=== PATIENT | female | born 1940 | race Hispanic/Latino ===

== ENCOUNTER 2020-06-08 09:13 | Observation (INO) | payer MEDICARE ==
[2020-06-03 15:35] LABS: BASOPHILS % 0.5 % (0.0-1.0); EOSINOPHILS # (AUTO) 0.3 (0.0-0.4); EOSINOPHILS % 4.4 % (0.0-6.0); HEMATOCRIT 40.2 % (34.2-44.1); HEMOGLOBIN 13.3 g/dL (12.0-16.0); LYMPHOCYTES # (AUTO) 1.2 (1.0-3.2); LYMPHOCYTES % 19.1 % (18.0-39.1); MEAN CORPUSCULAR HEMOGLOBIN 30.1 pg (28-32); MEAN CORPUSCULAR HGB CONC 33.1 g/dL (31-35); MONOCYTES # (AUTO) 0.4 (0.2-0.8); MONOCYTES % 6.3 % (4.4-11.3); NEUTROPHILS # (AUTO) 4.4 (2.1-6.9); NEUTROPHILS % 69.4 % (38.7-80.0); PLATELET COUNT 223 x10e3/uL (140-360); RED BLOOD COUNT 4.42 x10e6/uL (3.6-5.1); RED CELL DISTRIBUTION WIDTH 13.3 % (11.7-14.4)
--- NOTE | 2020-06-03 16:32 | Diagnostic Imaging Report ---
Chest, 2 views, 06/02/2020. History: Preop, right knee surgery. Comparison: None available. Findings: The cardiomediastinal silhouette and pulmonary vasculature are within normal limits. Descending thoracic aorta is tortuous. The lungs are clear without evidence of consolidation or pleural effusion. 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 Deformity of the left shoulder is consistent with old trauma. There are no acute osseous or soft tissue abnormalities. Impression: No acute cardiopulmonary abnormality. Signed by: Tree Brewer on 06/03/2020 4:29 PM
[~2020-06-08] VITALS: Ht 142.2 cm; Wt 64.9 kg
[~2020-06-08 09:13] MED LIST: AMITIZA24 MCG PO; AMLODIPINE BESY10 MG PO; CELEBREX100 MG PO; CLOPIDOGREL75 MG PO; CRESTOR10 MG PO; PROTONIX20 MG PO; ROPIVACAINE 246.25 MG, EPINEPHRINE HCL 1:1000 1ML 0.5 MG, CLONIDINE HCL 0.08 MG, KETORO... INJ ONE
[2020-06-08] MEDS ORDERED: CELECOXIB 200 MG CAP ONE (10:31)
[2020-06-08] MEDS ORDERED: CEFAZOLIN SOD 1 GM/NS 50ML 100 ML IV ONE (10:32)
[2020-06-08] MEDS ORDERED: DEXAMETHASONE SOD PHOS 10 MG/1 ML VIAL ONE (10:32)
[2020-06-08] MEDS ORDERED: GABAPENTIN 300 MG CAP ONE (10:32)
[2020-06-08] MEDS ORDERED: SODIUM CHLORIDE 0.9% 500ML 500 ML ONE (11:27)
[2020-06-08] MEDS ORDERED: VANCOMYCIN HCL 1,000 MG ONE (11:27)
[2020-06-08] MEDS ORDERED: TRANEXAMIC ACID 1,000 MG/10 ML ML ONE (11:27)
[2020-06-08] MEDS ORDERED: HYDROCODONE/APAP 5MG-325MG TAB PO PRN (12:45)
[2020-06-08] MEDS ORDERED: ONDANSETRON HCL INJ 2MG/ML 2ML 2 MG/ML VIAL IV PRN (12:45)
[2020-06-08] MEDS ORDERED: HYDROCODONE/APAP 7.5MG-325MG 1 EA TAB PO PRN (12:45)
[2020-06-08] MEDS ORDERED: KETOROLAC TROMETHAMINE 30 MG/ML VIAL IV PRN (12:45)
[2020-06-08] MEDS ORDERED: DOCUSATE SODIUM 100 MG CAP PO PRN (12:45)
[2020-06-08] MEDS ORDERED: DIPHENHYDRAMINE HCL INJ 50 MG/ML VIAL IV PRN (12:45)
[2020-06-08] MEDS ORDERED: ACETAMINOPHEN 650 MG SUPP PR PRN (12:45)
--- NOTE | 2020-06-08 13:53 | Diagnostic Imaging Report ---
X-ray right knee 3 views History: Postoperative Findings: See impression Impression: Status post right knee tricompartmental arthroplasty with postoperative colton, soft tissue air and swelling. The orthopedic hardware is in position and in near anatomic alignment. Bones are osteopenic. Arterial calcification. Signed by: Roldan Almaguer MD on 06/08/2020 1:50 PM
--- NOTE | 2020-06-08 14:16 | Operative Report ---
DATE OF PROCEDURE: 06/08/2020 SURGEON: Salbador Rodriguez MD ABLE BODIED SEAMAN: Tahir Dangelo PA-C PREOPERATIVE DIAGNOSIS: Osteoarthritis, right knee. POSTOPERATIVE DIAGNOSIS: Osteoarthritis, right knee. PROCEDURE: Right total knee arthroplasty. INDICATIONS: The patient is a 80-year-old lady who has end-stage arthritis of her right knee. She has failed conservative management and would like to proceed with a right total knee replacement. The risks and benefits of the procedure have been discussed in detail with the patient and her family. They state they understand and wished to proceed. PROCEDURE IN DETAIL: The patient was brought to the operating room and placed under general anesthetic. She received prophylactic antibiotics, a regional block and tranexamic acid in the holding area. Her right lower extremity was prepped and draped in a sterile manner. A preoperative time-out was performed. The extremity was exsanguinated and a proximal tourniquet was inflated to 300 mmHg. An anterior incision with a medial parapatellar arthrotomy was performed. Clear synovial fluid was removed from the joint. Soft tissue releases were performed to bring the knee up into flexion with the patella everted. Meniscal remnants, marginal osteophytes in the cruciate ligaments were removed. A Harris and NephJW Player knee system were used. Initial attention was directed towards the proximal tibia. Extramedullary cutting guide was used to resect the tibia. The cut was referenced off the lateral compartment. Complete loss of articular cartilage was noted in the medial compartment. The tibial base plate was a size 4. The central fin punch was impacted and attention was directed towards the distal femur. An intramedullary cutting guide was used to resect the distal femur in 6 degrees of valgus and rotation referencing off a combination of landmarks including Whitesides line, the epicondylar axis, and the posterior condyles. The femoral component was a size 5. The anterior and posterior cuts were made. Trial reductions were performed. A 9 mm ultracongruent tibial insert provided appropriate soft tissue balancing in full extension and 90 degrees of flexion. The patella was resurfaced with a 29 mm x 9 mm patellar button. The thickness was checked before and after resurfacing and was right around 20 mm. Patellar tracking was noted to be concentric. The trial implants were then all removed. The knee was thoroughly irrigated with a shower tip pulsatile lavage. A 100 mL premixed pericapsular DARYL injection was placed into the surrounding soft tissue. The components were cemented into place using a single mix of high viscosity Biomet cement preloaded with antibiotics. Care was taken to remove all extravasated cement. The wound was further irrigated while the cement cured. The arthrotomy was then closed with interrupted #1 Ethibond. The knee was put through flexion and extension to ensure a secure closure. The skin was closed with subcuticular Vicryl and colton. A sterile Aquacel bandage was applied. The patient was extubated and transported to the recovery room in stable condition. Blood loss was minimal. All needle and sponge counts were correct. Salbador Rodriguez MD DR/FLOR /[id number]
--- NOTE | 2020-06-08 14:52 | NUR ---
Received patient from PACU. Oriented patient to room and call light. Daughter at bedside to translate. Right knee dressing c/d/i. Pillow under right heel. Foot pumps applied. Right hand 20 gauge IV intact/patent. Respirations even and unlabored. Ice pack to right knee. Call light in reach will continue to monitor patient.
[2020-06-08 15:39] VITALS: BP 122/61
[2020-06-08 15:47] VITALS: BP 122/61
[2020-06-08 15:48] VITALS: BP 122/61
[2020-06-08] MEDS: SODIUM CHLORIDE 0.9% 1000ML 1,000 ML IV SCH ×2 (15:53→22:45)
--- NOTE | 2020-06-08 15:56 | NUR ---
DR LARKIN OFFICE PREARRANGED FOLLOWING DISCHARGE PLAN OF:HOME [address] [facility], [place] [address] HOME HEALTH WITH [facility] CONFIRMED WITH [facility] [phone] DME 3 IN ONE COMMODE, CPM AND ROLLING WALKER WITH WHEELS. PROVIDED BY Pets are family too [phone] PRAVIN SIGNED AND ON CHART COPY LEFT WITH PATIENT GAVE CARD FOR QUESTIONS AND OR CONCERNS.
[2020-06-08] MEDS ORDERED: ACETAMINOPHEN 1000 MG/100 ML IV PRN (16:00)
[2020-06-08] MEDS: CELECOXIB 100 MG CAP PO SCH (16:25)
[2020-06-08] MEDS: ASPIRIN 325 MG TAB PO SCH (16:25)
[2020-06-08] MEDS ORDERED: LIDOCAINE 2%/ EPINEPHRINE 20ML MDV ONE (16:27)
[2020-06-08] MEDS ORDERED: ROPIVACAINE 0.5% 5 MG/ML 30 ML SDV ONE (16:27)
[2020-06-08] MEDS ORDERED: FENTANYL CITRATE/PF 100MCG/2 ML INJ ONE (16:30)
[2020-06-08] MEDS ORDERED: MIDAZOLAM HCL 2 MG/2 ML VIAL ONE (16:30)
[2020-06-08] MEDS ORDERED: LIDOCAINE HCL 2% LOCAL INJ 5 ML SDV VIAL INJ ONE (16:40)
[2020-06-08] MEDS ORDERED: SEVOFLURANE INHAL SOLN 250 ML PEN BTL ONE (16:40)
[2020-06-08] MEDS ORDERED: KETOROLAC TROMETHAMINE 30 MG/ML VIAL ONE (16:40)
[2020-06-08] MEDS ORDERED: PROPOFOL IV EMULSION 10 MG/ML 20 ML VIAL ONE (16:40)
[2020-06-08] MEDS ORDERED: ONDANSETRON HCL INJ 2MG/ML 2ML 2 MG/ML VIAL ONE (16:40)
--- NOTE | 2020-06-08 18:21 | NUR ---
Patient placed onto CPM at 55 degrees. Patient tolerating well.
--- NOTE | 2020-06-08 19:00 | NUR ---
RECEIVED PATIENT IN BEDSIDE SHIFT REPORT. PATIENT ON CPM AT 55 DEGREES, TOLERATING WELL. PATIENT SLEEPY, BUT AROUSABLE. NO PAIN NOTED. NO S&S OF DISTRESS NOTED. BED LOCKED IN LOWEST POSITION, SIDE RAILS UPX2, CALL LIGHT IN REACH.
[2020-06-08 20:13] VITALS: BP 119/59
[2020-06-08 20:16] VITALS: BP 119/59
[2020-06-08] MEDS ORDERED: ZOLPIDEM TARTRATE 5 MG TAB PO PRN (21:00)
[2020-06-08] MEDS: CEFAZOLIN SOD 1 GM/NS 50ML 50 ML IV SCH (21:30)
--- NOTE | 2020-06-09 | NUR ---
PATIENT AMBULATED TO TOILET WITH WALKER AND STAFF ASSISTANCE. STEADY GAIT NOTED. NO BUCKLING NOTED.
[2020-06-09 00:09] VITALS: BP 117/64
[2020-06-09 04:32] VITALS: BP 101/58
[2020-06-09 05:10] LABS: HEMATOCRIT 35.9 % (34.2-44.1); HEMOGLOBIN 12.1 g/dL (12.0-16.0)
--- NOTE | 2020-06-09 05:20 | NUR ---
PLACED PATIENT ON CPM AT THIS TIME AT 60 DEGREES. PATIENT TOLERATING WELL.
[2020-06-09] MEDS: CEFAZOLIN SOD 1 GM/NS 50ML 50 ML IV SCH (05:29)
--- NOTE | 2020-06-09 06:40 | Consultation ---
DATE OF CONSULTATION: 06/09/2020 REASON FOR CONSULTATION: Postop medical management. HISTORY OF PRESENT ILLNESS: The patient is a 80-year-old lady, status post right knee arthroplasty for end-stage osteoarthritis, who actually has minimal pain. REVIEW OF SYSTEMS: Denies any fever, chills, nausea, vomiting, headache, shortness of breath, dizziness. PAST MEDICAL HISTORY: Significant for gastroesophageal reflux disease, hypertension, hyperlipidemia. MEDICATIONS: See MAR. ALLERGIES: NONE. SOCIAL HISTORY: Nonsmoker, nondrinker. . Retired. FAMILY HISTORY: Noncontributory. PHYSICAL EXAMINATION: VITAL SIGNS: Temperature 98.6, pulse 64, blood pressure 101/58, sats 98% on room air. GENERAL: No apparent distress, lying in bed. NECK: Supple. CARDIOVASCULAR: Regular rate and rhythm. LUNGS: Clear to auscultation bilaterally. ABDOMEN: Good bowel sounds. Soft, nontender. EXTREMITIES: No clubbing or cyanosis. There is no seepage on her right knee bandage. NEUROLOGIC: Nonfocal. ASSESSMENT/PLAN: 1. Right knee pain. We will continue physical therapy and pain control. 2. Reflux disease. Continue with her medication. 3. Hypertension. We will continue with her home medication. 4. Hyperlipidemia. We will restart her cholesterol medicine. 5. Anemia. We will check a CBC. Please see hospital chart for details. MD GARY Ryan/FLOR /[id number]
--- NOTE | 2020-06-09 07:00 | NUR ---
RECEIVED PATIENT RESTING IN BED NO S/S OF DISTRESS. CPM IN PLACE. BED LOW, WHEELS LOCKED, SIDE RAILS X2. CALL LIGHT IN REACH WILL CONTINUE TO MONITOR PATIENT.
[2020-06-09] MEDS ORDERED: PANTOPRAZOLE SOD 40 MG TABEC PO SCH (07:30)
[2020-06-09 08:08] VITALS: BP 134/58
[2020-06-09 08:10] VITALS: BP 134/58
[2020-06-09] MEDS: SODIUM CHLORIDE 0.9% 1000ML 1,000 ML IV SCH (08:45)
[2020-06-09] MEDS ORDERED: AMLODIPINE BESYLATE 10 MG TAB PO SCH (09:00)
[2020-06-09] MEDS ORDERED: SIMVASTATIN 40 MG TAB PO SCH (09:00)
[2020-06-09] MEDS: ASPIRIN 325 MG TAB PO SCH (09:17)
[2020-06-09] MEDS: CELECOXIB 100 MG CAP PO SCH (09:17)
--- NOTE | 2020-06-09 10:50 | NUR ---
Removed patients IV. Catheter tip intact and pressure dressing applied.
--- NOTE | 2020-06-09 11:30 | NUR ---
Patient discharged from facility. Patient gathered all personal belongings, discharge instructions, and follow up information. Patient left unit in wheelchair and went home via private auto.
[2020-06-09] MEDS ORDERED: SIMVASTATIN 20 MG TAB PO SCH (21:00)
--- OUTSIDE RECORDS SUMMARY | 2020-06-10 19:03 | XMS REPORT | Continuity of Care Document ---
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 [facility] HEMATOLOGY RBC 4.30 4.20 - 5.40 01/19/[address] [facility] HEMATOLOGY Hgb 13.6 12.0 - 16.0 01/19/[address] [facility] HEMATOLOGY Hct 40.1 36.0 - 48.0 01/19/[address] [facility] HEMATOLOGY MCV 93.2 80.0 - 98.0 01/19/[address] [facility] HEMATOLOGY WBC 4.5 3.7 - 10.4 01/19/[address] [facility] HEMATOLOGY Lymphocytes 10.0 20.0 - 40.0 01/19/[address] [facility] HEMATOLOGY Monocytes 1.6 2.0 - 12.0 01/19/[address] [facility] HEMATOLOGY Eosinophils 0.2 0.0 - 4.0 01/19/[address] [facility] HEMATOLOGY Basophils 0.2 0.0 - 1.0 01/19/[address] [facility] HEMATOLOGY Neutrophils # 4.0 1.5 - 8.1 01/19/[address] [facility] HEMATOLOGY Lymphocytes # 0.5 1.0 - 5.5 01/19/[address] [facility] HEMATOLOGY Segs 88.0 45.0 - 75.0 01/19/[address] [facility] HEMATOLOGY Monocytes # 0.1 0.0 - 0.8 01/19/[address] [facility] URINE AND STOOL UA WBC 0-2 /HPF None Seen /HPF 01/19/2019 [facility] URINE AND STOOL UA RBC None Seen (01/19/19 9:53 AM) 0 - 2 01/19/2019 [facility] URINE AND STOOL UA Bacteria None Seen (01/19/19 9:53 AM) None Seen 01/19/2019 [facility] URINE AND STOOL UA Mucus None Seen (01/19/19 9:53 AM) None Seen 01/19/2019 [facility] URINE AND STOOL UA Leuk Est Trace *ABN* (01/19/19 9:53 AM) Negative 01/19/2019 [facility] URINE AND STOOL UA Sq Epi Few /LPF Few /LPF 01/19/2019 [facility] URINE AND STOOL UA Blood Negative (01/19/19 9:53 AM) Negative 01/19/2019 [facility] URINE AND STOOL UA Bili Negative *NA* (01/19/19 9:53 AM) Negative 01/19/2019 [facility] URINE AND STOOL UA Protein Negative (01/19/19 9:53 AM) Negative 01/19/2019 [facility] URINE AND STOOL UA Ketones Negative *NA* (01/19/19 9:53 AM) Negative 01/19/2019 [facility] URINE AND STOOL UA Glucose Negative (01/19/19 9:53 AM) Negative 01/19/2019 [facility] URINE AND STOOL UA Spec Grav <=1.005 *NA* (01/19/19 9:53 AM) <=1.030 01/19/2019 [facility] URINE AND STOOL UA pH 7.0 5.0 - 8.0 01/19/2019 [facility] URINE AND STOOL UA Urobilinogen 0.2 0.1 - 1.0 01/19/2019 [facility] URINE AND STOOL UA Nitrite Negative (01/19/19 9:53 AM) Negative 01/19/2019 [facility] URINE AND STOOL UA Color Yellow *NA* (01/19/19 9:53 AM) Yellow 01/19/2019 [facility] URINE AND STOOL UA Turbidity Clear (01/19/19 9:53 AM) Clear 01/19/2019 [facility] CARDIAC ENZYMES Troponin-I <0.02 0.00 - 0.40 01/19/2019 [facility] CHEM PANEL Globulin 3.5 2.7 - 4.2 01/19/2019 [facility] CHEM PANEL B/C Ratio 43 6 - 25 01/19/2019 [facility] CHEM PANEL A/G Ratio 0.9 0.7 - 1.6 01/19/2019 [facility] CHEM PANEL AGAP 10.9 10.0 - 20.0 01/19/2019 [facility] CHEM PANEL eGFR 64 01/19/2019 Result Comment: The eGFR is calculated using the CKD-EPI formula. In most young, healthy individuals the eGFR will be >90 mL/min/1.73m2. The eGFR declines with age. An eGFR of 60-89 may be normal in some populations, particularly the elderly, for whom the CKD-EPI formula has not been extensively validated. Use of the eGFR is not recommended in the following populations:

Individuals with unstable creatinine concentrations, including patients and those with serious co-morbid conditions.

Patients with extremes in muscle mass or diet.

The data above are obtained from the National Kidney Disease Education Program (NKDEP) which additionally recommends that when the eGFR is used in patients with extremes of body mass index for purposes of drug dosing, the eGFR should be multiplied by the estimated BMI. [facility] CHEM PANEL Albumin Lvl 3.3 3.5 - 5.0 01/19/2019 [facility] CHEM PANEL Total Protein 6.8 6.4 - 8.4 01/19/2019 [facility] CHEM PANEL ALT 14 0 - 65 01/19/2019 [facility] CHEM PANEL AST 16 0 - 37 01/19/2019 [facility] CHEM PANEL Bili Total 0.5 0.2 - 1.3 01/19/2019 [facility] CHEM PANEL Alk Phos 94 39 - 136 01/19/2019 [facility] CHEM PANEL Potassium Lvl 3.9 3.5 - 5.1 01/19/2019 [facility] CHEM PANEL Calcium Lvl 8.2 8.5 - 10.5 01/19/2019 [facility] CHEM PANEL CO2 28 24 - 32 01/19/2019 [facility] CHEM PANEL Chloride Lvl 105 95 - 109 01/19/2019 [facility] CHEM PANEL BUN 37 7 - 22 01/19/2019 [facility] CHEM PANEL Glucose Lvl 98 70 - 99 01/19/2019 [facility] CHEM PANEL Sodium Lvl 140 135 - 145 01/19/2019 [facility] CHEM PANEL Creatinine Lvl 0.87 0.50 - 1.40 01/19/2019 [facility] HEMATOLOGY Segs 73.3 45.0 - 75.0 01/19/2019 [facility] HEMATOLOGY Eosinophils 3.4 0.0 - 4.0 01/19/2019 [facility] HEMATOLOGY Monocytes 10.4 2.0 - 12.0 01/19/2019 [facility] HEMATOLOGY Lymphocytes 12.6 20.0 - 40.0 01/19/2019 [facility] HEMATOLOGY Lymphocytes # 0.7 1.0 - 5.5 01/19/2019 [facility] HEMATOLOGY Neutrophils # 3.8 1.5 - 8.1 01/19/2019 [facility] HEMATOLOGY Basophils 0.3 0.0 - 1.0 01/19/2019 [facility] HEMATOLOGY Eosinophils # 0.2 0.0 - 0.5 01/19/2019 [facility] HEMATOLOGY Monocytes # 0.5 0.0 - 0.8 01/19/2019 [facility] HEMATOLOGY INR 0.97 0.85 - 1.17 01/19/2019 [facility] HEMATOLOGY PTT 33.2 22.9 - 35.8 01/19/2019 [facility] HEMATOLOGY PT 12.7 12.0 - 14.7 01/19/2019 [facility] HEMATOLOGY Platelet 186 133 - 450 01/19/2019 [facility] HEMATOLOGY MPV 8.1 7.4 - 10.4 01/19/2019 [facility] HEMATOLOGY WBC 5.2 3.7 - 10.4 01/19/2019 [facility] HEMATOLOGY RBC 4.21 4.20 - 5.40 01/19/2019 [facility] HEMATOLOGY Hgb 13.1 12.0 - 16.0 01/19/2019 [facility] HEMATOLOGY MCH 31.2 27.0 - 31.0 01/19/2019 [facility] HEMATOLOGY MCHC 33.5 32.0 - 36.0 01/19/2019 [facility] HEMATOLOGY MCV 92.9 80.0 - 98.0 01/19/2019 [facility] HEMATOLOGY RDW 13.9 11.5 - 14.5 01/19/2019 [facility] HEMATOLOGY Hct 39.1 36.0 - 48.0 01/19/2019 [facility] LIPIDS LDL (Calculated) 57 <=99 mg/dL 07/27/2018 [facility] LIPIDS VLDL 22 07/27/2018 [facility] LIPIDS Trig 109 <=149 mg/dL 07/27/2018 [facility] LIPIDS HDL 44 >=61 mg/dL 07/27/2018 [facility] LIPIDS Chol 123 <=199 mg/dL 07/27/2018 [facility] LIPIDS CHD Risk 2.80 3.90 - 5.80 07/27/2018 [facility] SPECIAL CHEMISTRY Hgb A1C 5.4 <=5.6 % 07/27/2018 [facility] URINE AND STOOL UA Blood Trace *ABN* (07/26/18 8:05 PM) Negative 07/27/2018 [facility] URINE AND STOOL UA Urobilinogen 0.2 0.1 - 1.0 07/27/2018 [facility] URINE AND STOOL UA RBC 0-2 /HPF 0 - 2 07/27/2018 [facility] URINE AND STOOL UA Bacteria Few /HPF None Seen /HPF 07/27/2018 [facility] URINE AND STOOL UA WBC 3-5 /HPF None Seen /HPF 07/27/2018 [facility] URINE AND STOOL UA Sq Epi Few /LPF Few /LPF 07/27/2018 [facility] URINE AND STOOL UA Leuk Est Small *ABN* (07/26/18 8:05 PM) Negative 07/27/2018 [facility] URINE AND STOOL UA Nitrite Negative (07/26/18 8:05 PM) Negative 07/27/2018 [facility] URINE AND STOOL UA Bili Negative *NA* (07/26/18 8:05 PM) Negative 07/27/2018 [facility] URINE AND STOOL UA Ketones Negative *NA* (07/26/18 8:05 PM) Negative 07/27/2018 [facility] URINE AND STOOL UA Glucose Negative (07/26/18 8:05 PM) Negative 07/27/2018 [facility] URINE AND STOOL UA Spec Grav 1.020 <=1.030 07/27/2018 [facility] URINE AND STOOL UA pH 6.0 5.0 - 8.0 07/27/2018 [facility] URINE AND STOOL UA Turbidity Clear (07/26/18 8:05 PM) Clear 07/27/2018 [facility] URINE AND STOOL UA Protein 30 mg/dL Negative mg/dL 07/27/2018 [facility] URINE AND STOOL UA Color Yellow *NA* (07/26/18 8:05 PM) Yellow 07/27/2018 [facility] CARDIAC ENZYMES Troponin-I <0.02 0.00 - 0.40 07/27/2018 [facility] CHEM PANEL A/G Ratio 1.0 0.7 - 1.6 07/27/2018 [facility] CHEM PANEL Globulin 3.6 2.7 - 4.2 07/27/2018 [facility] CHEM PANEL B/C Ratio 45 6 - 25 07/27/2018 [facility] CHEM PANEL AGAP 13.2 10.0 - 20.0 07/27/2018 [facility] CHEM PANEL eGFR 84 07/27/2018 Result Comment: The eGFR is calculated using the CKD-EPI formula. In most young, healthy individuals the eGFR will be >90 mL/min/1.73m2. The eGFR declines with age. An eGFR of 60-89 may be normal in some populations, particularly the elderly, for whom the CKD-EPI formula has not been extensively validated. Use of the eGFR is not recommended in the following populations:

Individuals with unstable creatinine concentrations, including patients and those with serious co-morbid conditions.

Patients with extremes in muscle mass or diet.

The data above are obtained from the National Kidney Disease Education Program (NKDEP) which additionally recommends that when the eGFR is used in patients with extremes of body mass index for purposes of drug dosing, the eGFR should be multiplied by the estimated BMI. [facility] CHEM PANEL Potassium Lvl 4.2 3.5 - 5.1 07/27/2018 [facility] CHEM PANEL Chloride Lvl 107 95 - 109 07/27/2018 [facility] CHEM PANEL Sodium Lvl 141 135 - 145 07/27/2018 [facility] CHEM PANEL Creatinine Lvl 0.69 0.50 - 1.40 07/27/2018 [facility] CHEM PANEL CO2 25 24 - 32 07/27/2018 [facility] CHEM PANEL Total Protein 7.1 6.4 - 8.4 07/27/2018 [facility] CHEM PANEL Albumin Lvl 3.5 3.5 - 5.0 07/27/2018 [facility] CHEM PANEL Calcium Lvl 8.9 8.5 - 10.5 07/27/2018 [facility] CHEM PANEL Alk Phos 104 39 - 136 07/27/2018 [facility] CHEM PANEL AST 12 0 - 37 07/27/2018 [facility] CHEM PANEL Bili Total 0.3 0.2 - 1.3 07/27/2018 [facility] CHEM PANEL ALT 15 0 - 65 07/27/2018 [facility] CHEM PANEL BUN 31 7 - 22 07/27/2018 [facility] CHEM PANEL Glucose Lvl 92 70 - 99 07/27/2018 [facility] HEMATOLOGY PT 12.5 12.0 - 14.7 07/27/2018 [facility] HEMATOLOGY PTT 30.0 22.9 - 35.8 07/27/2018 [facility] HEMATOLOGY INR 0.95 0.85 - 1.17 07/27/2018 [facility] HEMATOLOGY Platelet 181 133 - 450 07/27/2018 [facility] HEMATOLOGY MPV 8.0 7.4 - 10.4 07/27/2018 [facility] HEMATOLOGY RDW 13.8 11.5 - 14.5 07/27/2018 [facility] HEMATOLOGY MCHC 34.0 32.0 - 36.0 07/27/2018 [facility] HEMATOLOGY MCH 30.1 27.0 - 31.0 07/27/2018 [facility] HEMATOLOGY MCV 88.7 80.0 - 98.0 07/27/2018 [facility] HEMATOLOGY Hct 39.0 36.0 - 48.0 07/27/2018 [facility] HEMATOLOGY Hgb 13.3 12.0 - 16.0 07/27/2018 [facility] HEMATOLOGY RBC 4.41 4.20 - 5.40 07/27/2018 [facility] HEMATOLOGY WBC 5.9 3.7 - 10.4 07/27/2018 [facility] HEMATOLOGY Segs 63.2 45.0 - 75.0 07/27/2018 [facility] HEMATOLOGY Monocytes # 0.4 0.0 - 0.8 07/27/2018 [facility] HEMATOLOGY Eosinophils # 0.2 0.0 - 0.5 07/27/2018 [facility] HEMATOLOGY Eosinophils 4.1 0.0 - 4.0 07/27/2018 [facility] HEMATOLOGY Basophils 0.4 0.0 - 1.0 07/27/2018 [facility] HEMATOLOGY Neutrophils # 3.8 1.5 - 8.1 07/27/2018 [facility] HEMATOLOGY Lymphocytes # 1.5 1.0 - 5.5 07/27/2018 [facility] HEMATOLOGY Lymphocytes 25.3 20.0 - 40.0 07/27/2018 [facility] HEMATOLOGY Monocytes 7.0 2.0 - 12.0 07/27/2018 [facility] CHEM PANEL eGFR 81 03/29/2018 Result Comment: The eGFR is calculated using the CKD-EPI formula. In most young, healthy individuals the eGFR will be >90 mL/min/1.73m2. The eGFR declines with age. An eGFR of 60-89 may be normal in some populations, particularly the elderly, for whom the CKD-EPI formula has not been extensively validated. Use of the eGFR is not recommended in the following populations:

Individuals with unstable creatinine concentrations, including patients and those with serious co-morbid conditions.

Patients with extremes in muscle mass or diet.

The data above are obtained from the National Kidney Disease Education Program (NKDEP) which additionally recommends that when the eGFR is used in patients with extremes of body mass index for purposes of drug dosing, the eGFR should be multiplied by the estimated BMI. [facility] CHEM PANEL ALT 17 0 - 65 03/29/2018 [facility] CHEM PANEL Albumin Lvl 2.7 3.5 - 5.0 03/29/2018 [facility] CHEM PANEL Alk Phos 86 39 - 136 03/29/2018 [facility] CHEM PANEL AST 15 0 - 37 03/29/2018 [facility] CHEM PANEL Total Protein 6.4 6.4 - 8.4 03/29/2018 [facility] CHEM PANEL Chloride Lvl 106 95 - 109 03/29/2018 [facility] CHEM PANEL CO2 28 24 - 32 03/29/2018 [facility] CHEM PANEL Calcium Lvl 8.5 8.5 - 10.5 03/29/2018 [facility] CHEM PANEL Bili Total 0.5 0.2 - 1.3 03/29/2018 [facility] CHEM PANEL Potassium Lvl 3.9 3.5 - 5.1 03/29/2018 [facility] CHEM PANEL BUN 29 7 - 22 03/29/2018 [facility] CHEM PANEL Sodium Lvl 142 135 - 145 03/29/2018 [facility] CHEM PANEL Glucose Lvl 106 70 - 99 03/29/2018 [facility] CHEM PANEL Creatinine Lvl 0.72 0.50 - 1.40 03/29/2018 [facility] CHEM PANEL Globulin 3.7 2.7 - 4.2 03/29/2018 [facility] CHEM PANEL A/G Ratio 0.7 0.7 - 1.6 03/29/2018 [facility] CHEM PANEL AGAP 11.9 10.0 - 20.0 03/29/2018 [facility] CHEM PANEL B/C Ratio 40 6 - 25 03/29/2018 [facility] HEMATOLOGY MPV 8.5 7.4 - 10.4 03/29/2018 [facility] HEMATOLOGY Platelet 185 133 - 450 03/29/2018 [facility] HEMATOLOGY RDW 14.2 11.5 - 14.5 03/29/2018 [facility] MCHC 33.9 32.0 - 36.0 03/29/2018 [facility] HEMATOLOGY Hgb 13.5 12.0 - 16.0 03/29/2018 [facility] HEMATOLOGY RBC 4.45 4.20 - 5.40 03/29/2018 [facility] HEMATOLOGY WBC 8.2 3.7 - 10.4 03/29/2018 [facility] MCH 30.4 27.0 - 31.0 03/29/2018 [facility] HEMATOLOGY MCV 89.7 80.0 - 98.0 03/29/2018 [facility] HEMATOLOGY Hct 39.9 36.0 - 48.0 03/29/2018 [facility] HEMATOLOGY Segs 85.5 45.0 - 75.0 03/29/2018 [facility] HEMATOLOGY Lymphocytes # 0.8 1.0 - 5.5 03/29/2018 [facility] HEMATOLOGY Neutrophils # 7.0 1.5 - 8.1 03/29/2018 [facility] HEMATOLOGY Monocytes # 0.4 0.0 - 0.8 03/29/2018 [facility] HEMATOLOGY Basophils 0.1 0.0 - 1.0 03/29/2018 [facility] HEMATOLOGY Monocytes 4.6 2.0 - 12.0 03/29/2018 [facility] HEMATOLOGY Lymphocytes 9.8 20.0 - 40.0 03/29/2018 [facility] CHEM PANEL eGFR 77 03/28/2018 Result Comment: The eGFR is calculated using the CKD-EPI formula. In most young, healthy individuals the eGFR will be >90 mL/min/1.73m2. The eGFR declines with age. An eGFR of 60-89 may be normal in some populations, particularly the elderly, for whom the CKD-EPI formula has not been extensively validated. Use of the eGFR is not recommended in the following populations:

Individuals with unstable creatinine concentrations, including patients and those with serious co-morbid conditions.

Patients with extremes in muscle mass or diet.

The data above are obtained from the National Kidney Disease Education Program (NKDEP) which additionally recommends that when the eGFR is used in patients with extremes of body mass index for purposes of drug dosing, the eGFR should be multiplied by the estimated BMI. [facility] CHEM PANEL AGAP 14.7 10.0 - 20.0 03/28/2018 [facility] CHEM PANEL CO2 22 24 - 32 03/28/2018 [facility] CHEM PANEL Calcium Lvl 8.3 8.5 - 10.5 03/28/2018 [facility] CHEM PANEL Glucose Lvl 93 70 - 99 03/28/2018 [facility] CHEM PANEL Creatinine Lvl 0.75 0.50 - 1.40 03/28/2018 [facility] CHEM PANEL BUN 36 7 - 22 03/28/2018 [facility] CHEM PANEL Sodium Lvl 141 135 - 145 03/28/2018 [facility] CHEM PANEL Potassium Lvl 4.7 3.5 - 5.1 03/28/2018 [facility] CHEM PANEL Chloride Lvl 109 95 - 109 03/28/2018 [facility] ELECTROLYTES Potassium Lvl 5.5 3.5 - 5.1 03/28/2018 [facility] CHEM PANEL eGFR 73 03/28/2018 Result Comment: The eGFR is calculated using the CKD-EPI formula. In most young, healthy individuals the eGFR will be >90 mL/min/1.73m2. The eGFR declines with age. An eGFR of 60-89 may be normal in some populations, particularly the elderly, for whom the CKD-EPI formula has not been extensively validated. Use of the eGFR is not recommended in the following populations:

Individuals with unstable creatinine concentrations, including patients and those with serious co-morbid conditions.

Patients with extremes in muscle mass or diet.

The data above are obtained from the National Kidney Disease Education Program (NKDEP) which additionally recommends that when the eGFR is used in patients with extremes of body mass index for purposes of drug dosing, the eGFR should be multiplied by the estimated BMI. [facility] CHEM PANEL Calcium Lvl 8.1 8.5 - 10.5 03/28/2018 [facility] CHEM PANEL Chloride Lvl 111 95 - 109 03/28/2018 [facility] CHEM PANEL CO2 21 24 - 32 03/28/2018 [facility] CHEM PANEL AGAP 12.6 10.0 - 20.0 03/28/2018 [facility] CHEM PANEL Glucose Lvl 104 70 - 99 03/28/2018 [facility] CHEM PANEL BUN 43 7 - 22 03/28/2018 [facility] CHEM PANEL Sodium Lvl 139 135 - 145 03/28/2018 [facility] CHEM PANEL Creatinine Lvl 0.78 0.50 - 1.40 03/28/2018 [facility] HEMATOLOGY MPV 8.8 7.4 - 10.4 03/28/2018 [facility] HEMATOLOGY Platelet 182 133 - 450 03/28/2018 [facility] HEMATOLOGY RDW 14.6 11.5 - 14.5 03/28/2018 [facility] HEMATOLOGY MCHC 32.9 32.0 - 36.0 03/28/2018 [facility] HEMATOLOGY MCV 91.8 80.0 - 98.0 03/28/2018 [facility] HEMATOLOGY Hct 39.0 36.0 - 48.0 03/28/2018 [facility] HEMATOLOGY Hgb 12.8 12.0 - 16.0 03/28/2018 [facility] HEMATOLOGY MCH 30.2 27.0 - 31.0 03/28/2018 [facility] HEMATOLOGY RBC 4.25 4.20 - 5.40 03/28/2018 [facility] HEMATOLOGY WBC 13.0 3.7 - 10.4 03/28/2018 [facility] CHEM PANEL Phosphorus 3.7 2.5 - 4.5 03/27/2018 [facility] CHEM PANEL Magnesium Lvl 2.4 1.8 - 2.4 03/27/2018 [facility] SPECIAL CHEMISTRY Hgb A1C 5.6 <=5.6 % 03/27/2018 [facility] Gram Stain Report Gram Stain Perf ormed By: [facility] 03/26/2018 [facility] Culture: Respiratory w/Gram Stain N ormal Respiratory Eunice Isolated 03/26/2018 [facility] CHEM PANEL A/G Ratio 0.9 0.7 - 1.6 03/26/2018 [facility] CHEM PANEL Alk Phos 120 39 - 136 03/26/2018 [facility] CHEM PANEL B/C Ratio 29 6 - 25 03/26/2018 [facility] CHEM PANEL Globulin 4.2 2.7 - 4.2 03/26/2018 [facility] CHEM PANEL Bili Total 0.9 0.2 - 1.3 03/26/2018 [facility] CHEM PANEL Total Protein 7.8 6.4 - 8.4 03/26/2018 [facility] CHEM PANEL AST 20 0 - 37 03/26/2018 [facility] CHEM PANEL Albumin Lvl 3.6 3.5 - 5.0 03/26/2018 [facility] CHEM PANEL ALT 15 0 - 65 03/26/2018 [facility] URINE AND STOOL UA Sq Epi None Seen 03/26/2018 [facility] URINE AND STOOL UA Color STRAW 03/26/2018 [facility] URINE AND STOOL UA Urobilinogen <=1.0 mg/dL 0.1 - 1.0 03/26/2018 [facility] URINE AND STOOL UA Ketones Negative mg/dL Negative mg/dL 03/26/2018 [facility] URINE AND STOOL UA Glucose Negative mg/dL Negative mg/dL 03/26/2018 [facility] URINE AND STOOL UA Turbidity Clear (03/25/18 10:16 PM) Clear 03/26/2018 [facility] URINE AND STOOL UA Spec Grav 1.004 <=1.030 03/26/2018 [facility] URINE AND STOOL UA Protein Negative mg/dL Negative mg/dL 03/26/2018 [facility] URINE AND STOOL UA pH 5.0 5.0 - 8.0 03/26/2018 [facility] [facility]OOL UA Bili Negative *NA* (03/25/18 10:16 PM) Negative 03/26/2018 [facility] URINE AND STOOL UA Nitrite Negative (03/25/18 10:16 PM) Negative 03/26/2018 [facility] URINE AND STOOL UA Blood Small *ABN* (03/25/18 10:16 PM) Negative 03/26/2018 [facility] URINE AND STOOL UA Leuk Est Negative (03/25/18 10:16 PM) Negative 03/26/2018 [facility] URINE AND STOOL UA WBC <1 0 - 5 03/26/2018 [facility] URINE AND STOOL UA RBC 1 0 - 2 03/26/2018 [facility] URINE AND STOOL UA Bacteria Occasional /HPF None Seen /HPF 03/26/[address] [address] BACTERIAL - SEROLOGY MRSA by PCR Negative (03/25/18 10:01 PM) 03/26/2018 [facility] CHEM PANEL Albumin Lvl 3.4 3.5 - 5.0 03/26/2018 [facility] CHEM PANEL Total Protein 7.1 6.4 - 8.4 03/26/2018 [facility] CHEM PANEL Bili Total 0.7 0.2 - 1.3 03/26/2018 [facility] CHEM PANEL Alk Phos 105 39 - 136 03/26/2018 [facility] CHEM PANEL AST 20 0 - 37 03/26/2018 [facility] CHEM PANEL ALT 16 0 - 65 03/26/2018 [facility] CHEM PANEL A/G Ratio 0.9 0.7 - 1.6 03/26/2018 [facility] CHEM PANEL B/C Ratio 31 6 - 25 03/26/2018 [facility] CHEM PANEL Globulin 3.7 2.7 - 4.2 03/26/2018 [facility] Neutrophils # 2.7 1.5 - 8.1 03/26/2018 [facility] Monocytes # 0.4 0.0 - 0.8 03/26/2018 [facility] HEMATOLOGY Basophils 0.5 0.0 - 1.0 03/26/2018 [facility] HEMATOLOGY Lymphocytes # 1.9 1.0 - 5.5 03/26/2018 [facility] HEMATOLOGY Eosinophils # 0.2 0.0 - 0.5 03/26/2018 [facility] Lymphocytes 36.3 20.0 - 40.0 03/26/2018 [facility] HEMATOLOGY Segs 51.5 45.0 - 75.0 03/26/2018 [facility] HEMATOLOGY Eosinophils 4.2 0.0 - 4.0 03/26/2018 [facility] HEMATOLOGY Monocytes 7.5 2.0 - 12.0 03/26/2018 [facility] HEMATOLOGY Platelet 198 133 - 450 03/26/2018 [facility] HEMATOLOGY MPV 7.7 7.4 - 10.4 03/26/2018 [facility] Hct 41.1 36.0 - 48.0 03/26/2018 [facility] HEMATOLOGY MCV 87.9 80.0 - 98.0 03/26/2018 [facility] MCH 29.5 27.0 - 31.0 03/26/2018 [facility] MCHC 33.6 32.0 - 36.0 03/26/2018 [facility] HEMATOLOGY RDW 13.3 11.5 - 14.5 03/26/2018 [facility] HEMATOLOGY WBC 5.2 3.7 - 10.4 03/26/2018 [facility] HEMATOLOGY RBC 4.68 4.20 - 5.40 03/26/2018 [facility] HEMATOLOGY Hgb 13.8 12.0 - 16.0 03/26/2018 [facility] CARDIAC ENZYMES CK MB 2.7 0.5 - 3.6 12/15/2017 [facility] CARDIAC ENZYMES Troponin-I <0.02 0.00 - 0.40 12/15/2017 [facility] CARDIAC ENZYMES Total CK 106 12 - 191 12/15/2017 [facility] CARDIAC ENZYMES CK MB Index 2.5 0.0 - 2.5 12/15/2017 [facility] CHEM PANEL Lipase Lvl 426 73 - 393 12/15/2017 [facility] CHEM PANEL eGFR 85 12/15/2017 Result Comment: The eGFR is calculated using the CKD-EPI formula. In most young, healthy individuals the eGFR will be >90 mL/min/1.73m2. The eGFR declines with age. An eGFR of 60-89 may be normal in some populations, particularly the elderly, for whom the CKD-EPI formula has not been extensively validated. Use of the eGFR is not recommended in the following populations:

Individuals with unstable creatinine concentrations, including patients and those with serious co-morbid conditions.

Patients with extremes in muscle mass or diet.

The data above are obtained from the National Kidney Disease Education Program (NKDEP) which additionally recommends that when the eGFR is used in patients with extremes of body mass index for purposes of drug dosing, the eGFR should be multiplied by the estimated BMI. [facility] CHEM PANEL Sodium Lvl 138 135 - 145 12/15/2017 [facility] CHEM PANEL Creatinine Lvl 0.68 0.50 - 1.40 12/15/2017 [facility] CHEM PANEL BUN 26 7 - 22 12/15/2017 [facility] CHEM PANEL AST 17 0 - 37 12/15/2017 [facility] CHEM PANEL Glucose Lvl 112 70 - 99 12/15/2017 [facility] CHEM PANEL CO2 26 24 - 32 12/15/2017 [facility] CHEM PANEL Potassium Lvl 4.1 3.5 - 5.1 12/15/2017 [facility] CHEM PANEL Chloride Lvl 105 95 - 109 12/15/2017 [facility] CHEM PANEL ALT 20 0 - 65 12/15/2017 [facility] CHEM PANEL A/G Ratio 1.0 0.7 - 1.6 12/15/2017 [facility] CHEM PANEL Globulin 3.8 2.7 - 4.2 12/15/2017 [facility] CHEM PANEL Calcium Lvl 8.6 8.5 - 10.5 12/15/2017 [facility] CHEM PANEL Alk Phos 102 39 - 136 12/15/2017 [facility] CHEM PANEL Albumin Lvl 3.7 3.5 - 5.0 12/15/2017 [facility] CHEM PANEL Total Protein 7.5 6.4 - 8.4 12/15/2017 [facility] CHEM PANEL B/C Ratio 38 6 - 25 12/15/2017 [facility] CHEM PANEL AGAP 11.1 10.0 - 20.0 12/15/2017 [facility] CHEM PANEL Bili Total 0.4 0.2 - 1.3 12/15/2017 [facility] HEMATOLOGY PTT 28.9 22.9 - 35.8 12/15/2017 [facility] HEMATOLOGY MCHC 33.3 32.0 - 36.0 12/15/2017 [facility] HEMATOLOGY MPV 8.1 7.4 - 10.4 12/15/2017 [facility] HEMATOLOGY Platelet 209 133 - 450 12/15/2017 [facility] HEMATOLOGY RDW 13.8 11.5 - 14.5 12/15/2017 [facility] HEMATOLOGY Hgb 13.7 12.0 - 16.0 12/15/2017 [facility] HEMATOLOGY MCH 29.7 27.0 - 31.0 12/15/2017 [facility] HEMATOLOGY MCV 89.2 80.0 - 98.0 12/15/2017 [facility] HEMATOLOGY Hct 41.1 36.0 - 48.0 12/15/2017 [facility] HEMATOLOGY WBC 5.2 3.7 - 10.4 12/15/2017 [facility] HEMATOLOGY RBC 4.61 4.20 - 5.40 12/15/2017 [facility] HEMATOLOGY PT 13.3 12.0 - 14.7 12/15/2017 [facility] HEMATOLOGY INR 1.01 0.85 - 1.17 12/15/2017 [facility] HEMATOLOGY Eosinophils # 0.3 0.0 - 0.5 12/15/2017 [facility] HEMATOLOGY Monocytes # 0.4 0.0 - 0.8 12/15/2017 [facility] HEMATOLOGY Segs-Bands # 3.2 1.5 - 8.1 12/15/2017 [facility] HEMATOLOGY Basophils 0.5 0.0 - 1.0 12/15/2017 [facility] HEMATOLOGY Lymphocytes # 1.3 1.0 - 5.5 12/15/2017 [facility] HEMATOLOGY Monocytes 7.8 2.0 - 12.0 12/15/2017 [facility] HEMATOLOGY Lymphocytes 25.4 20.0 - 40.0 12/15/2017 [facility] HEMATOLOGY Segs 61.2 45.0 - 75.0 12/15/2017 [facility] HEMATOLOGY Eosinophils 5.1 0.0 - 4.0 12/15/2017 [facility] URINE AND STOOL UA Mucus Moderate /LPF None Seen /LPF 12/15/2017 [facility] URINE AND STOOL UA Bacteria Few /HPF None Seen /HPF 12/15/2017 [facility] URINE AND STOOL UA RBC 3-5 /HPF 0 - 2 12/15/2017 [facility] URINE AND STOOL UA WBC 11-20 /HPF None Seen /HPF 12/15/2017 [facility] URINE AND STOOL UA Sq Epi Few /LPF Few /LPF 12/15/2017 [facility] URINE AND STOOL UA Leuk Est Small *ABN* (12/14/17 8:21 PM) Negative 12/15/2017 [facility] URINE AND STOOL UA Nitrite Negative (12/14/17 8:21 PM) Negative 12/15/2017 [facility] URINE AND STOOL UA Bili Negative *NA* (12/14/17 8:21 PM) Negative 12/15/2017 [facility] URINE AND STOOL UA Blood Trace *ABN* (12/14/17 8:21 PM) Negative 12/15/2017 [facility] URINE AND STOOL UA Urobilinogen 0.2 0.1 - 1.0 12/15/2017 [facility] URINE AND STOOL UA Glucose Negative (12/14/17 8:21 PM) Negative 12/15/2017 [facility] URINE AND STOOL UA Ketones Negative *NA* (12/14/17 8:21 PM) Negative 12/15/2017 [facility] URINE AND STOOL UA Protein Trace *ABN* (12/14/17 8:21 PM) Negative 12/15/2017 [facility] URINE AND STOOL UA pH 6.0 5.0 - 8.0 12/15/2017 [facility] URINE AND STOOL UA Spec Grav <=1.005 *NA* (12/14/17 8:21 PM) <=1.030 12/15/2017 [facility] URINE AND STOOL UA Turbidity Clear (12/14/17 8:21 PM) Clear 12/15/2017 [facility] URINE AND STOOL UA Color STRAW 12/15/2017 [facility] URINE AND STOOL UA Mucus Few /LPF None Seen /LPF 06/21/2015 [facility] URINE AND STOOL UA Bacteria Occasional /HPF None Seen /HPF 06/21/2015 [facility] URINE AND STOOL UA RBC 3-5 /HPF 0 - 2 06/21/2015 [facility] URINE AND STOOL UA Sq Epi Occasional /LPF Few /LPF 06/21/2015 [facility] URINE AND STOOL UA WBC 0-2 /HPF None Seen /HPF 06/21/2015 [facility] URINE AND STOOL UA Glucose Negative (06/20/15 11:13 PM) Negative 06/21/2015 [facility] URINE AND STOOL UA Turbidity Clear (06/20/15 11:13 PM) Clear 06/21/2015 [facility] URINE AND STOOL UA Protein 30 mg/dL Negative mg/dL 06/21/2015 [facility] URINE AND STOOL UA pH 6.5 5.0 - 8.0 06/21/2015 [facility] URINE AND STOOL UA Ketones Negative *NA* (06/20/15 11:13 PM) Negative 06/21/2015 [facility] URINE AND STOOL UA Spec Grav <=1.005 *NA* (06/20/15 11:13 PM) <=1.030 06/21/2015 [facility] URINE AND STOOL UA Color Yellow *NA* (06/20/15 11:13 PM) Yellow 06/21/2015 [facility] URINE AND STOOL UA Leuk Est Negative (06/20/15 11:13 PM) Negative 06/21/2015 [facility] URINE AND STOOL UA Nitrite Negative (06/20/15 11:13 PM) Negative 06/21/2015 [facility] URINE AND STOOL UA Urobilinogen 0.2 0.1 - 1.0 06/21/2015 [facility] URINE AND STOOL UA Blood Small *ABN* (06/20/15 11:13 PM) Negative 06/21/2015 [facility] URINE AND STOOL UA Bili Negative *NA* (06/20/15 11:13 PM) Negative 06/21/2015 [facility] CARDIAC ENZYMES CK MB 5.4 0.5 - 3.6 06/21/2015 [facility] CARDIAC ENZYMES Total CK 218 12 - 191 06/21/2015 [facility] CARDIAC ENZYMES Troponin-I <0.02 0.00 - 0.40 06/21/2015 [facility] CARDIAC ENZYMES proBNP 291 0 - 125 06/21/2015 [facility] CARDIAC ENZYMES CK MB Index 2.5 0.0 - 2.5 06/21/2015 [facility] CHEM PANEL eGFR 68 06/21/2015 Result Comment: The eGFR is calculated using the CKD-EPI formula. In most young, healthy individuals the eGFR will be >90 mL/min/1.73m2. The eGFR declines with age. An eGFR of 60-89 may be normal in some populations, particularly the elderly, for whom the CKD-EPI formula has not been extensively validated. Use of the eGFR is not recommended in the following populations:

Individuals with unstable creatinine concentrations, including patients and those with serious co-morbid conditions.

Patients with extremes in muscle mass or diet.

The data above are obtained from the National Kidney Disease Education Program (NKDEP) which additionally recommends that when the eGFR is used in patients with extremes of body mass index for purposes of drug dosing, the eGFR should be multiplied by the estimated BMI. [facility] CHEM PANEL Calcium Lvl 8.7 8.5 - 10.5 06/21/2015 [facility] CHEM PANEL CO2 26 24 - 32 06/21/2015 [facility] CHEM PANEL Chloride Lvl 104 95 - 109 06/21/2015 [facility] CHEM PANEL A/G Ratio 1.1 0.7 - 1.6 06/21/2015 [facility] CHEM PANEL Bili Total 0.3 0.2 - 1.3 06/21/2015 [facility] CHEM PANEL Creatinine Lvl 0.85 0.50 - 1.40 06/21/2015 [facility] CHEM PANEL Potassium Lvl 4.6 3.5 - 5.1 06/21/2015 [facility] CHEM PANEL Sodium Lvl 135 135 - 145 06/21/2015 [facility] CHEM PANEL AGAP 9.6 10.0 - 20.0 06/21/2015 [facility] CHEM PANEL AST 22 0 - 37 06/21/2015 [facility] CHEM PANEL Total Protein 7.0 6.4 - 8.4 06/21/2015 [facility] CHEM PANEL Globulin 3.4 2.0 - 4.0 06/21/2015 [facility] CHEM PANEL B/C Ratio 35 6 - 25 06/21/2015 [facility] CHEM PANEL Alk Phos 108 39 - 136 06/21/2015 [facility] CHEM PANEL BUN 30 7 - 22 06/21/2015 [facility] CHEM PANEL Glucose Lvl 107 70 - 99 06/21/2015 [facility] CHEM PANEL ALT 24 0 - 65 06/21/2015 [facility] CHEM PANEL Albumin Lvl 3.6 3.5 - 5.0 06/21/2015 [facility] HEMATOLOGY RDW 13.6 11.5 - 14.5 06/21/2015 [facility] MCHC 32.1 32.0 - 36.0 06/21/2015 [facility] HEMATOLOGY MPV 8.1 7.4 - 10.4 06/21/2015 [facility] HEMATOLOGY Platelet 189 133 - 450 06/21/2015 [facility] MCH 29.1 27.0 - 31.0 06/21/2015 [facility] HEMATOLOGY RBC 4.54 4.20 - 5.40 06/21/2015 [facility] HEMATOLOGY WBC 6.1 3.7 - 10.4 06/21/2015 [facility] Hgb 13.2 12.0 - 16.0 06/21/2015 [facility] HEMATOLOGY MCV 90.8 80.0 - 98.0 06/21/2015 [facility] HEMATOLOGY Hct 41.2 36.0 - 48.0 06/21/2015 [facility] HEMATOLOGY Monocytes 7.4 2.0 - 12.0 06/21/2015 [facility] HEMATOLOGY Eosinophils 5.1 0.0 - 4.0 06/21/2015 [facility] HEMATOLOGY Lymphocytes 15.6 20.0 - 40.0 06/21/2015 [facility] HEMATOLOGY Segs 71.3 45.0 - 75.0 06/21/2015 [facility] HEMATOLOGY Monocytes # 0.4 0.0 - 0.8 06/21/2015 [facility] HEMATOLOGY Segs-Bands # 4.5 1.5 - 8.1 06/21/2015 [facility] HEMATOLOGY Lymphocytes # 0.9 1.0 - 5.5 06/21/2015 [facility] HEMATOLOGY Basophils 0.6 0.0 - 1.0 06/21/2015 [facility] HEMATOLOGY Eosinophils # 0.3 0.0 - 0.5 06/21/2015 [facility] Pathology Reports No Data Provided for This Section Diagnostic Reports Report Value Date Source Chest 1view DX Clinical Indica tion: - leg swelling; Comparison: 07/26/2018 Technique: X-ray chest frontal projection FINDINGS: There is no consolidation, pleural effusion or pneumothorax. The heart is normal in size. The mediastinum and tsering are unremarkable. The patient is status post bilateral shoulder arthroplasty. IMPRESSION: No chest radiographic evidence of acute cardiopulmonary disease. SL: BOSTON 04/28/2019 [facility] Ext Lower Venous Doppler Bilat US Exam: Ext Lower Venous Doppler Bilat US Clinical Indication: - Bilateral leg swelling. Comparison: None. TECHNIQUE: Sonographic evaluation of the bilateral lower extremity veins was performed using high resolution B-mode imaging, along with pulse and color Doppler imaging. FINDINGS: Right lower extremity: The common femoral vein, superficial femoral vein, popliteal vein and visualized posterior tibial/calf veins are patent. There is no echogenic debris to suggest deep venous thrombosis. The saphenofemoral junction is unremarkable. Left lower extremity: The common femoral vein, superficial femoral vein, popliteal vein and visualized posterior tibial/calf veins are patent. There is no echogenic debris to suggest deep venous thrombosis. The saphenofemoral junction is unremarkable. IMPRESSION: No deep venous thrombosis of bilateral lower extremities. SL: B[place] 04/28/2019 [facility] Neck soft tissue w contrast CT Clinical Indication: - evaluation for difficulty swallowing x 2 weeks Comparison: None Technique: CT of the neck is performed with a multidetector CT. Coronal and sagittal reconstructions were obtained. CONTRAST: 100 cc of IV Omnipaque contrast material was used for the exam. CT Radiation Dose DLP 422 mGy-cm FINDINGS: SOFT TISSUES: There are no neck masses noted. There are no fluid collections or abscess. LYMPH NODES: Physiologic level 1 and 2 nodes are present. The nasopharyngeal adenoids and tonsillar pillar regions appear unremarkable. SALIVARY GLANDS: The submandibular and parotid glands are unremarkable. PARANASAL SINUSES AND AIRWAY: Minimal mucosal thickening with hyperdense mucus is present in the left lateral sphenoid sinus. The nasopharyngeal, oropharyngeal, supraglottic and infraglottic airway is unremarkable. SUPRAHYOID NECK: The oropharynx, oral cavity, parapharyngeal space, and retropharyngeal space are normal. INFRAHYOID NECK: There is retropharyngeal edema and edematous changes along the aryepiglottic folds with partial attenuation of the supraglottic airway. The glottic and subglottic airway is normal. The epiglottis and vallecular are normal.. ORBITS: The orbital lenses have been resected. VASCULAR STRUCTURES: The jugular veins and carotid vessels are unremarkable. There is a retropharyngeal position of the proximal right internal carotid artery. OSSEOUS STRUCTURES: There are no fractures or dislocations. There are no lucencies at the bases of the mandibular teeth to suggest abscess. There are no radiopaque foreign bodies noted. THYROID GLANDS: The thyroid lobes are symmetric and there are no lesions. VISUALIZED LUNG APICES: There are no pulmonary masses or consolidation. If there is further concern for neck masses or malignancy, PET/CT imaging or MRI of the neck should be performed for complete assessment. IMPRESSION: There is retropharyngeal edema and edematous changes along the aryepiglottic folds with partial attenuation of the supraglottic airway. The glottic and subglottic airway is normal. The epiglottis and vallecular are normal.. SL: MARLENY 01/19/2019 [facility] Neck soft tissue DX Exam: Neck soft tissue DX Clinical Indication: - discomfort with swallowing; feels like something is in throat. Comparison: CTA brain/neck 07/27/2018 FINDINGS: AP and lateral views of the neck soft tissues are performed. No radiopaque foreign body identified. There appears to be significant thickening of the epiglottis. Prevertebral soft tissues are within normal limits. The airway appears to remain patent. The adenoids are unremarkable. The hyoid bone is unremarkable. No acute osseous abnormality identified. Moderate to severe degenerative disc disease at C3-C4, C4-C5, and C6-C7. Bilateral multilevel facet arthropathy is present in the cervical spine. IMPRESSION: 1. Apparent significant thickening of t he epiglottis suggesting epiglottitis. May consider further assessment with CT of the neck as clinically warranted. 2. Moderate to severe multilevel degene rative changes in the cervical spine. SL: [id number] 01/19/2019 [facility] Brain/Neck CTA Clinical Indica tion: - stenosis seen on MRA. Comparison: MRA dated 07/27/2018 TECHNIQUE: Sequential trans-axial images of the head and neck were obtained with a multi-detector helical CT after iodinated contrast administration. Coronal and sagittal reconstructions and were obtained, along with 3D post-processing imaging for exam interpretation. CT imaging was performed with exposure control parameters to reduce radiation dose. CONTRAST: 100 cc of IV Omnipaque contrast material was used for the exam. CT imaging performed at this location utilizes radiation dose optimization techniques which include one or more of the following: -Automated exposure control -Adjustment of the mA and/or kV accordin g to patient size -Use of iterative reconstruction [employer] ue CT Radiation Dose DLP 1447.50 mGy-cm FINDINGS: CTA NECK: VASCULAR EVALUATION: There is moderate atherosclerotic disease at the origin of left subclavian artery. The remainder of the great vessel origins are unremarkable. The common carotid arteries are patent bilaterally. There is minimal atherosclerotic disease at the right carotid bifurcation.. The internal and external carotid artery origins are patent. The cervical internal carotid arteries are patent. The left vertebral artery is hypoplastic. The right vertebral artery is dominant. The source images show no evidence of dissections. If there is further concern, recommend conventional angiography for complete assessment. Any reported ICA stenosis directly references the distal internal carotid diameter as the denominator for stenosis measurement. NON-VASCULAR STRUCTURES: Grossly unremarkable. FINDINGS: CTA HEAD ANTERIOR CIRCULATION: There is atherosclerotic disease in the intracranial portions of bilateral internal carotid arteries. There is moderate stenosis in the supraclinoid portions of bilateral internal carotid arteries.. The A1 and A2 segments of the anterior cerebral arteries, middle cerebral arteries and branches are unremarkable. The anterior communicating artery is unremarkable. The posterior communicating arteries are also unremarkable. POSTERIOR CIRCULATION: Bilateral vertebral arteries, basilar artery, superior cerebellar and posterior cerebral arteries are unremarkable. The posterior inferior cerebellar arteries are unremarkable. There are no aneurysms or arteriovenous malformations seen. NON-CONTRAST BRAIN IMAGES: No acute infarct, intracranial hemorrhage or mass effect. Moderate microvascular white matter disease. Mucosal thickening in the bilateral sphenoid sinuses, left greater than the right. CONTRAST ENHANCED BRAIN IMAGES: The contrast-enhanced images of the head show no abnormally enhancing lesions. If there is further concern, recommend conventional angiography for complete assessment. IMPRESSION: Moderate stenosis in the supraclinoid portions of bilateral internal carotid arteries. Hypoplastic left vertebral artery. No significant stenosis in the bilateral cervical internal carotid arteries and right vertebral artery. SL: [place] 07/27/2018 [facility] Brain wo contrast MRI INDICATI ON: Dizziness. COMPARISON: Brain CT 07/26/2018 and 12/14/2017. Brain MR 12/23/2009. TECHNIQUE: - Multiplanar non-contrast MRI images of the brain. - Three-dimensional time of flight brain MR angiography of intracranial vessels is performed, and maximum intensity projection reformatted images are presented in multiple three-dimensional rotational projections. - Two-dimensional time of flight neck MR angiography of extracranial arterial system was performed and reformatted images are presented in three-dimensional maximum intensity rotational projections. Three-dimensional [id number] MR angiography centered at the carotid bifurcations was included. IV contrast: None. FINDINGS: SCALP AND CALVARIUM: No focal abnormalities. Partially imaged moderate to severe spinal canal stenosis at C3-C4 and C4-C5. VENTRICLES AND SULCI: Widened, consistent with cerebral Loss. EXTRA-AXIAL SPACES: Widened, consistent with volume loss -- likely age-related. No acute hydrocephalus. BRAIN PARENCHYMA: There is no abnormal restricted diffusion. Chronic lacunar infarction in the left frontal doran radiata. The T2 FLAIR hyperintense foci in the subinsular matter are nonspecific but favor mild to moderate microvascular ischemic changes. There is no mass effect or midline shift. There is no magnetic susceptibility to suggest intraparenchymal hemorrhage. BRAIN MRA: ANTERIOR CIRCULATION: Right: Internal carotid artery: Loss of signal at the paraophthalmic segment and carotid terminus. Anterior cerebral artery: Patent. Middle cerebral artery: Patent. Left: Internal carotid artery: Loss of signal at the paraophthalmic segment and carotid terminus. Anterior cerebral artery: Patent. Middle cerebral artery: Patent. Communicating arteries: Anterior: Patent. Posterior: Not visualized. POSTERIOR CIRCULATION: Right vertebral artery: Normal caliber. Left vertebral artery: Loss of signal. Basilar artery: Normal caliber. Right posterior cerebral artery: Normal caliber. Left posterior cerebral artery: Normal caliber. There is no aneurysm, vascular malformation, or significant atherosclerotic disease. Neck MRA: Aortic arch: Normal anatomy. RIGHT-SIDED EXTRACRANIAL SYSTEM: Common carotid artery: No hemodynamically significant stenosis. Internal carotid artery: No hemodynamically significant stenosis. Right vertebral artery: Patent. LEFT-SIDED EXTRACRANIAL SYSTEM: Common carotid artery: No hemodynamically significant stenosis. Internal carotid artery: No hemodynamically significant stenosis. Left vertebral artery: Absent. IMPRESSION: BRAIN: 1. No acute infarction or acute intracr anial abnormality. 2. Age-related volume loss. 3. Mild to moderate microvascular ische brandon changes. BRAIN MRA: 1. Moderate loss of signal of the inter nal carotid arteries from the paraophthalmic segment to the carotid terminus, a nonspecific finding. Brain CTA recommended for further assessment. This may represent chronic stenosis, or slow flow. 2. Absent left vertebral artery from th e ostia to the intracranial segments, without acute or chronic infarction in the posterior circulation. NECK MRA: 1. 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 This may represent slow flow, reversal of flow or occlusion. This can be further assessed with neck CTA. This finding may be the source of the patient's dizziness. 2. Patent right vertebral artery and no hemodynamically significant stenosis of the internal carotid arteries. SL: [id number] 07/27/2018 [facility] Neck wo contrast MRA INDICATIO N: Dizziness. COMPARISON: Brain CT 07/26/2018 and 12/14/2017. Brain MR 12/23/2009. TECHNIQUE: - Multiplanar non-contrast MRI images of the brain. - Three-dimensional time of flight brain MR angiography of intracranial vessels is performed, and maximum intensity projection reformatted images are presented in multiple three-dimensional rotational projections. - Two-dimensional time of flight neck MR angiography of extracranial arterial system was performed and reformatted images are presented in three-dimensional maximum intensity rotational projections. Three-dimensional [id number] MR angiography centered at the carotid bifurcations was included. IV contrast: None. FINDINGS: SCALP AND CALVARIUM: No focal abnormalities. Partially imaged moderate to severe spinal canal stenosis at C3-C4 and C4-C5. VENTRICLES AND SULCI: Widened, consistent with cerebral Loss. EXTRA-AXIAL SPACES: Widened, consistent with volume loss -- likely age-related. No acute hydrocephalus. BRAIN PARENCHYMA: There is no abnormal restricted diffusion. Chronic lacunar infarction in the left frontal doran radiata. The T2 FLAIR hyperintense foci in the subinsular matter are nonspecific but favor mild to moderate microvascular ischemic changes. There is no mass effect or midline shift. There is no magnetic susceptibility to suggest intraparenchymal hemorrhage. BRAIN MRA: ANTERIOR CIRCULATION: Right: Internal carotid artery: Loss of signal at the paraophthalmic segment and carotid terminus. Anterior cerebral artery: Patent. Middle cerebral artery: Patent. Left: Internal carotid artery: Loss of signal at the paraophthalmic segment and carotid terminus. Anterior cerebral artery: Patent. Middle cerebral artery: Patent. Communicating arteries: Anterior: Patent. Posterior: Not visualized. POSTERIOR CIRCULATION: Right vertebral artery: Normal caliber. Left vertebral artery: Loss of signal. Basilar artery: Normal caliber. Right posterior cerebral artery: Normal caliber. Left posterior cerebral artery: Normal caliber. There is no aneurysm, vascular malformation, or significant atherosclerotic disease. Neck MRA: Aortic arch: Normal anatomy. RIGHT-SIDED EXTRACRANIAL SYSTEM: Common carotid artery: No hemodynamically significant stenosis. Internal carotid artery: No hemodynamically significant stenosis. Right vertebral artery: Patent. LEFT-SIDED EXTRACRANIAL SYSTEM: Common carotid artery: No hemodynamically significant stenosis. Internal carotid artery: No hemodynamically significant stenosis. Left vertebral artery: Absent. IMPRESSION: BRAIN: 1. No acute infarction or acute intracr anial abnormality. 2. Age-related volume loss. 3. Mild to moderate microvascular ische brandon changes. BRAIN MRA: 1. Moderate loss of signal of the inter nal carotid arteries from the paraophthalmic segment to the carotid terminus, a nonspecific finding. Brain CTA recommended for further assessment. This may represent chronic stenosis, or slow flow. 2. Absent left vertebral artery from th e ostia to the intracranial segments, without acute or chronic infarction in the posterior circulation. NECK MRA: 1. 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 This may represent slow flow, reversal of flow or occlusion. This can be further assessed with neck CTA. This finding may be the source of the patient's dizziness. 2. Patent right vertebral artery and no hemodynamically significant stenosis of the internal carotid arteries. SL: [id number] 07/27/2018 [facility] Brain wo contrast MRA INDICATI ON: Dizziness. COMPARISON: Brain CT 07/26/2018 and 12/14/2017. Brain MR 12/23/2009. TECHNIQUE: - Multiplanar non-contrast MRI images of the brain. - Three-dimensional time of flight brain MR angiography of intracranial vessels is performed, and maximum intensity projection reformatted images are presented in multiple three-dimensional rotational projections. - Two-dimensional time of flight neck MR angiography of extracranial arterial system was performed and reformatted images are presented in three-dimensional maximum intensity rotational projections. Three-dimensional [id number] MR angiography centered at the carotid bifurcations was included. IV contrast: None. FINDINGS: SCALP AND CALVARIUM: No focal abnormalities. Partially imaged moderate to severe spinal canal stenosis at C3-C4 and C4-C5. VENTRICLES AND SULCI: Widened, consistent with cerebral Loss. EXTRA-AXIAL SPACES: Widened, consistent with volume loss -- likely age-related. No acute hydrocephalus. BRAIN PARENCHYMA: There is no abnormal restricted diffusion. Chronic lacunar infarction in the left frontal doran radiata. The T2 FLAIR hyperintense foci in the subinsular matter are nonspecific but favor mild to moderate microvascular ischemic changes. There is no mass effect or midline shift. There is no magnetic susceptibility to suggest intraparenchymal hemorrhage. BRAIN MRA: ANTERIOR CIRCULATION: Right: Internal carotid artery: Loss of signal at the paraophthalmic segment and carotid terminus. Anterior cerebral artery: Patent. Middle cerebral artery: Patent. Left: Internal carotid artery: Loss of signal at the paraophthalmic segment and carotid terminus. Anterior cerebral artery: Patent. Middle cerebral artery: Patent. Communicating arteries: Anterior: Patent. Posterior: Not visualized. POSTERIOR CIRCULATION: Right vertebral artery: Normal caliber. Left vertebral artery: Loss of signal. Basilar artery: Normal caliber. Right posterior cerebral artery: Normal caliber. Left posterior cerebral artery: Normal caliber. There is no aneurysm, vascular malformation, or significant atherosclerotic disease. Neck MRA: Aortic arch: Normal anatomy. RIGHT-SIDED EXTRACRANIAL SYSTEM: Common carotid artery: No hemodynamically significant stenosis. Internal carotid artery: No hemodynamically significant stenosis. Right vertebral artery: Patent. LEFT-SIDED EXTRACRANIAL SYSTEM: Common carotid artery: No hemodynamically significant stenosis. Internal carotid artery: No hemodynamically significant stenosis. Left vertebral artery: Absent. IMPRESSION: BRAIN: 1. No acute infarction or acute intracr anial abnormality. 2. Age-related volume loss. 3. Mild to moderate microvascular ische brandon changes. BRAIN MRA: 1. Moderate loss of signal of the inter nal carotid arteries from the paraophthalmic segment to the carotid terminus, a nonspecific finding. Brain CTA recommended for further assessment. This may represent chronic stenosis, or slow flow. 2. Absent left vertebral artery from th e ostia to the intracranial segments, without acute or chronic infarction in the posterior circulation. NECK MRA: 1. 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 This may represent slow flow, reversal of flow or occlusion. This can be further assessed with neck CTA. This finding may be the source of the patient's dizziness. 2. Patent right vertebral artery and no hemodynamically significant stenosis of the internal carotid arteries. SL: [id number] 07/27/2018 [facility] Carotid artery Doppler bilat US CAROTID ULTRASOUND. INDICATION: Episode of dizziness with a sensation of heaviness in the head and a headache. COMPARISON: No relevant priors available. TECHNIQUE: Merritt-scale, color Doppler and spectral Doppler of the carotid arteries was performed. Any reported ICA stenoses indirectly reference the distal internal carotid diameter as the denominator for stenosis measurement, utilizing consensus panel criteria. RIGHT: There is mild carotid bulb plaque. ICA PSV: 70 cm/sec CCA PSV: 67 cm/sec ICA/CCA ratio: 1.0 Vertebral flow is antegrade. LEFT: There is mild carotid bulb plaque. ICA PSV: 95 cm/sec CCA PSV: 72 cm/sec ICA/CCA ratio: 1.3 Vertebral flow is antegrade. IMPRESSION: 1. By velocity criteria there is no evid ence of a hemodynamically significant stenosis. However on grayscale imaging there is apparent luminal narrowing of the proximal internal carotid artery immediately distal to the bifurcation. Consider MRA or CTA if there is clinical concern for carotid vascular disease. End Impression Consensus panel Doppler US criteria for diagnosis of ICA stenosis. Stenosis (%) ICA PSV (cm/sec) ICA/CCA ratio <50 <125 <2.0 50-69 125-230 2.0-4.0 >70 but less than >230 >4.0 near occlusion Near occlusion High, low, or undetectable Variable END IMPRESSION SL: [id number] 07/27/2018 [facility] Brain wo contrast CT Clinical Indication: - Dizziness Comparison: CT dated 12/14/2017 TECHNIQUE: CT images were obtained from the foramen magnum to the vertex without the use of intravenous contrast on a multidetector CT. CT imaging was performed with exposure control parameters to reduce radiation dose. Coronal and sagittal reconstructions were obtained. CT imaging performed at this location utilizes radiation dose optimization techniques which include one or more of the following: -Automated exposure control -Adjustment of the mA and/or kV accordin g to patient size -Use of iterative reconstruction [employer] ue CT Radiation Dose DLP 970.66 mGy-cm FINDINGS: BRAIN PARENCHYMA: There are age related involutional changes in the brain. There is moderate microvascular white matter disease. No focal mass lesions on this noncontrast head CT. No mass effect, midline shift or edema. There are no intra-axial or extra-axial fluid collections, intraventricular or intraparenchymal hemorrhage. No low attenuation demarcating areas on this non- contrast CT to suggest subacute stroke. VENTRICLES: The lateral ventricles, third and fourth ventricles appear unremarkable. The basilar cisterns are normal. ORBITS, MASTOIDS AND PARANASAL SINUSES: The visualized orbits are unremarkable. The visualized paranasal sinuses are unremarkable. Postsurgical changes are noted in the right mastoid region with opacification of the right middle ear cavity. SKULL: There are no osseous abnormalities. If there is further concern for intracranial pathology or acute stroke, MRI of the brain may be performed for complete assessment. IMPRESSION: No acute infarct, intracranial hemorrhage or mass effect. Moderate microvascular white matter disease. SL: [id number] 07/26/2018 [facility] 1view DX Clinical Indica tion: - dizzy; Comparison: 03/27/2018 FINDINGS: The portable AP single view radiograph provided for review. The exam demonstrates limited decreased lung volumes with further left basilar curvilinear density. No effusions or pneumothorax. The heart size and pulmonary vasculature are stable. The trachea is midline. There are no clinically significant osseous abnormalities noted. Bilateral shoulder arthroplasty changes. IMPRESSION: 1. Low lung volumes with left basilar s ubsegmental changes possibly atelectasis, correlate for superimposed process Otherwise unremarkable SL: [id number] 07/26/2018 [facility] 1view DX Clinical Indica tion: angioedema - respiratory failure. Comparison: March 25, 2018. FINDINGS: Portable AP chest radiograph was performed. LINES AND TUBES: Endotracheal tube is seen in place without change. Interval placement of a nasogastric tube with tip overlying the left upper abdominal region. LUNGS: Mildly increased small lung volumes. Decreased left basilar atelectasis. Minimal increased right basilar atelectasis. No pneumothorax. HEART AND MEDIASTINUM: The heart size is unchanged. There is a mildly tortuous thoracic aorta. The trachea is midline. OSSEOUS STRUCTURES: The patient is status post bilateral shoulder arthroplasties. Degenerative disc disease changes and degenerative osteophytes are seen in the thoracic spine. IMPRESSION: 1. Endotracheal tube and nasogastric tub e in place, as noted above. 2. Mildly increased small lung volumes. Decreased left basilar atelectasis. Minimal increased right basilar atelectasis. SL: [id number] 03/27/2018 [facility] Abdomen 1 v for Placement DX P atient Name: STUART OCHOA : 1940; Age: 78 years y/o Female MR: [id number] * ABDOMEN, portable, 1 view HISTORY: Assess nasogastric tube placement. COMPARISON: None TECHNIQUE: A portable supine radiograph of the abdomen was obtained for assessment of tube placement. This is a limited study. IMPRESSION: 1. The nasogastric tube extends well int o the stomach. 2. There is moderate gaseous distention of the stomach. The bowel gas pattern is otherwise grossly normal. 3. There are surgical clips in the right upper quadrant consistent with a prior cholecystectomy. SL: [id number] 03/26/2018 [facility] Chest 1view DX Patient Name: Devon OCHOA : 1940; Age: 78 years y/o Female MR: [id number] Study: Chest 1view DX 03/25/2018 8:36 PM CDT Ordering Physician: Daniel Burns Clinical Indication: Dyspnea - s/p intubation; Comparison: 06/20/15 FINDINGS: The lungs are clear. No focal airspace opacities or pleural effusions appreciated. ET tube noted 4.1cm above the yuriy. The cardiomediastinal silhouette is enlarged, but also exaggerated by AP technique. Bilateral shoulder arthroplasties noted. IMPRESSION: S/p intubation without sign of complication. SL: [id number] 03/25/2018 [facility] Brain wo contrast CT EXAM: CT BRAIN WITHOUT CONTRAST DATE: 12/14/2017 7:55 PM CDT INDICATION: Headache. COMPARISON: 06/20/2015. TECHNIQUE: CT images were obtained from the foramen magnum to the vertex without intravenous contrast on a multidetector CT. Coronal and sagittal reconstructions were also provided for review. CT radiation dose DLP: 978.40 mGy-cm FINDINGS: No acute intracranial hemorrhage, midline shift, or mass effect is identified. The merritt-white matter differentiation is preserved. The ventricles and sulci are prominent, compatible with mild diffuse parenchymal volume loss. Mild chronic microangiopathic changes are noted. Bilateral intraocular lens replacements are identified. Mild mucosal thickening is noted within the left sphenoid sinus. Postsurgical changes are suspected within the right mastoid air cells, with nonspecific residual opacification and central calcific density noted on series 3 image 13. The calvarium and skull base are intact. There is atherosclerotic calcification of the carotid siphons. IMPRESSION: 1. No acute intracranial hemorrhage or m ass effect. 2. Nonspecific opacification of the righ t mastoid air cells, with suspected postsurgical change. 3. Mild chronic microangiopathic changes and diffuse parenchymal volume loss. SL: [id number] 12/14/2017 [facility] Shoulder series DX Clinical In dication: - Atraumatic left shoulder pain Comparison: None FINDINGS: 3 views left shoulder. Reverse total lef t shoulder arthroplasty is noted. No shoulder dislocation. No component disassociation. No hardware fracture. Normal alignment. The visualized left lung is clear. There is subtle irregular lucency involving the supraspinous aspect of the scapula on the internal and external rotation views. Nondisplaced fracture is not excluded. IMPRESSION: Lucency involving the supraspinous aspect of the left scapula. Nondisplaced fracture cannot be excluded. Consider CT for further assessment. Reverse total left shoulder arthroplasty. SL: [id number] 02/16/2017 [facility] Pelvis Complete US EXAM: US PE LVIS TRANSABDOMINAL EXAM: US PELVIS TRANSVAGINAL DATE: 12/29/2016 8:47 AM CDT INDICATION: - R10.84 Generalized abdominal pain ADDITIONAL INFORMATION: Constipation. Status post total hysterectomy. LMP: Postmenopausal.; COMPARISON: Abdomen pelvis CT 06/18/2014. TECHNIQUE: Multiplanar grayscale and color Doppler ultrasound of the pelvis were obtained transabdominally through a distended urinary bladder followed by transvaginal examination postvoid. FINDINGS: Uterus: Size: Surgically absent. Right ovary: Size: Not visible. Left ovary: Size: Not visible. Adnexa: Normal. Free fluid: None. Other findings: None. IMPRESSION: 1. Normal pelvic ultrasound. The ovari es are not visible and are likely surgically absent. The uterus is surgically absent. 12/29/2016 [facility] Abdomen complete US EXAM: US A BDOMEN COMPLETE DATE: 12/29/2016 8:40 AM CDT INDICATION: - R10.84 Generalized abdominal pain ADDITIONAL INFORMATION: Pain for 6 months with constipation. Status post cholecystectomy. COMPARISON: Abdomen pelvis CT 06/18/2014. TECHNIQUE: Multiplanar grayscale and color Doppler ultrasound of the abdomen. FINDINGS: Abdominal aorta and IVC: Visible portions are unremarkable. Liver: Craniocaudal length: 16.7 cm. Echogenicity: Coarsened. Surface nodularity: No nodularity seen. Mass (size and location): None. Portal vein: 1.2 cm in diameter with appropriate directional flow. Bile ducts: Common bile duct diameter: 1.1 cm. Intrahepatic ducts: There is some pneumobilia with some dirty shadowing seen. There is minimal intrahepatic biliary dilatation seen.. Pancreas: The body is unremarkable.. The head and tail are obscured. Gallbladder: Surgically absent. Right kidney: Size: 10.6 cm in length. Hydronephrosis: None. Echogenicity: Normal. Mass/Stone/Cyst (size and location): 1. Lower pole simple 2.5 x 2.5 x 2.3 cm cyst. 2. Superior pole 2.6 x 2.4 x 2.5 cm simp le cyst. Spleen: Craniocaudal length: 10.5 cm. Mass or focal lesion (size and location): None. Left kidney: Size: 10.0 cm in length. Hydronephrosis: None. Echogenicity: Normal. Mass/Stone/Cyst (size and location): 1. Interpolar to upper pole simple cyst measuring 3.9 x 3.8 x 3.9 cm.. 2. Interpolar 3.0 x 2.6 x 3.1 cm simple cyst. 3. Lower pole simple 1.9 x 1.4 x 1.9 cm cyst. Ascites: None. IMPRESSION: 1. Mild coarsened hepatic echotexture s uggesting possible underlying hepatocellular disease. The liver is at the upper limits of normal in size. 2. Bilateral simple renal cortical cyst s. 3. Dilated common bile duct with mild i ntrahepatic biliary dilatation consistent with postcholecystectomy changes. There is associated pneumobilia also seen on the prior CT and may be secondary to sphincterotomy. 12/29/2016 [facility] contrast CT NAME: SHANKAR MELOSTUART HIGGINBOTHAM : 1940 SEX: F Ordering Physician: Kary Cool Brain wo contrast CT : Jun 20, 2015 10:08:00 PM. CLINICAL INDICATION: Facial numbness tachycardia COMPARISON: 05/29/2011 CT head. DOSE: The total exam DLP is 899.2 mGy-cm. TECHNIQUE: Axial CT images were obtained from the foramen magnum to the vertex without the use of intravenous contrast. Coronal and sagittal reconstructions reconstructions were obtained and viewed on the workstation. FINDINGS: No evidence for intracranial hemorrhage, mass, or acute infarct. Lateral ventricles are symmetric and nondilated. Basilar cisterns are widely patent. Periventricular and subcortical white matter hypodensities involve the cerebral hemispheres. Atherosclerotic calcifications course along the distal internal carotid and vertebral arteries. Postsurgical cataract changes are evident. Small amount of fluid layers posteriorly in the sphenoid sinuses. The remaining paranasal sinuses and mastoid air cells are clear. No acute osseous abnormalities evident. IMPRESSION: No acute intracranial findings. Periventricular and subcortical white matter hypodensities and global cerebral volume loss likely represent sequela chronic microvascular ischemic change in a patient of this age. Sphenoid sinus disease. SL: 06/20/2015 [facility] Chest 1view DX EXAM: Portable AP radiograph the chest. INDICATION: Chest pain. COMPARISON: 02/26/2007 chest radiograph. FINDINGS: Heart, mediastinum, and pulmonary vessels are within normal limits. No consolidation, pneumothorax, or pleural effusion. No acute osseous abnormalities evident. IMPRESSION: No acute cardiopulmonary findings. SL: 06/20/2015 [facility] Consultation Notes No Data Provided for This Section Discharge Summaries No Data Provided for This Section History and Physicals No Data Provided for This Section Vital Signs Vital Sign Value Date Comments Source Systolic (mm Hg) 134 04/29/2019 [facility] Diastolic (mm Hg) 61 04/29/2019 [facility] Heart Rate 80 04/29/2019 [facility] Respitory Rate 18 04/29/2019 [facility] Systolic (mm Hg) 164 04/28/2019 [facility] Diastolic (mm Hg) 72 04/28/2019 [facility] Heart Rate 83 04/28/2019 [facility] Respitory Rate 20 04/28/2019 [facility] Temperature Oral (F) 98.0 F 04/28/2019 [facility] Height 142.24 cm 04/28/2019 [facility] BMI Calculated 31.9 04/28/2019 [facility] Weight 64.545 04/28/2019 [facility] Systolic (mm Hg) 141 01/20/[address] [facility] Diastolic (mm Hg) 80 01/20/[address] [facility] Respitory Rate 16 01/20/[address] [facility] Respitory Rate 16 01/20/[address] [facility] Temperature Oral (F) 96.6 F 01/20/[address] [facility] Systolic (mm Hg) 110 01/20/[address] [facility] Diastolic (mm Hg) 76 01/20/[address] [facility] Respitory Rate 22 01/20/[address] [facility] Systolic (mm Hg) 125 01/20/[address] [facility] Diastolic (mm Hg) 69 01/20/[address] [facility] Temperature Oral (F) 96.2 F 01/20/[address] [facility] BMI Calculated 31.9 01/20/[address] [facility] Weight 64.545 01/20/[address] [facility] Height 142.24 cm 01/20/[address] [facility] Temperature Oral (F) 96.1 F 01/20/[address] [facility] Weight 64 0 01/19/[address] [facility] BMI Calculated 31.63 01/19/[address] [facility] Height 142.24 cm 01/19/[address] [facility] Heart Rate 73 01/19/[address] [facility] Respitory Rate 19 01/19/2019 [facility] Systolic (mm Hg) 147 01/19/2019 [facility] Diastolic (mm Hg) 74 01/19/2019 [facility] Heart Rate 67 01/19/2019 [facility] Heart Rate 61 01/19/2019 [facility] Respitory Rate 20 01/19/2019 [facility] Systolic (mm Hg) 150 01/19/2019 [facility] Diastolic (mm Hg) 63 01/19/2019 [facility] Heart Rate 76 01/19/2019 [facility] Respitory Rate 19 01/19/2019 [facility] Height 149.86 cm 01/19/2019 [facility] Temperature Oral (F) 97.7 F 01/19/2019 [facility] BMI Calculated 28.56 01/19/2019 [facility] Weight 64.148 01/19/2019 [facility] Systolic (mm Hg) 168 01/19/2019 [facility] Diastolic (mm Hg) 74 01/19/2019 [facility] Systolic (mm Hg) 124 07/28/2018 [facility] Diastolic (mm Hg) 68 07/28/2018 [facility] Respitory Rate 18 07/28/2018 [facility] Heart Rate 62 07/28/2018 [facility] Respitory Rate 18 07/28/2018 [facility] Heart Rate 57 07/28/2018 [facility] Systolic (mm Hg) 116 07/28/2018 [facility] Diastolic (mm Hg) 67 07/28/2018 [facility] Temperature Oral (F) 98.2 F 07/28/2018 [facility] Systolic (mm Hg) 149 07/28/2018 [facility] Diastolic (mm Hg) 69 07/28/2018 [facility] Respitory Rate 18 07/28/2018 [facility] Heart Rate 66 07/28/2018 [facility] Temperature Oral (F) 97.7 F 07/28/2018 [facility] Temperature Oral (F) 97.4 F 07/28/2018 [facility] Height 142.24 cm 07/27/2018 [facility] BMI Calculated 32.35 07/27/2018 [facility] Weight 65.455 07/27/2018 [facility] Weight 65.455 07/27/2018 [facility] Height 142.24 cm 07/27/2018 [facility] BMI Calculated 32.35 07/27/2018 [facility] Systolic (mm Hg) 152 03/30/2018 [facility] Diastolic (mm Hg) 82 03/30/2018 [facility] Heart Rate 81 03/30/2018 [facility] Respitory Rate 18 03/30/2018 [facility] Temperature Oral (F) 98.5 F 03/30/2018 [facility] Heart Rate 80 03/30/2018 [facility] Systolic (mm Hg) 152 03/30/2018 [facility] Diastolic (mm Hg) 82 03/30/2018 [facility] Systolic (mm Hg) 172 03/29/2018 [facility] Diastolic (mm Hg) 92 03/29/2018 [facility] Respitory Rate 20 03/29/2018 [facility] Heart Rate 77 03/29/2018 [facility] Temperature Oral (F) 98.4 F 03/29/2018 [facility] Temperature Oral (F) 98.5 F 03/29/2018 [facility] Respitory Rate 20 03/29/2018 [facility] Height 147.32 cm 03/27/2018 [facility] Height 147.32 cm 03/27/2018 [facility] Height 147.32 cm 03/27/2018 [facility] BMI Calculated 30.04 03/26/2018 [facility] Weight 65.2 03/26/2018 [facility] Weight 64.545 03/26/2018 [facility] BMI Calculated 30.79 03/26/2018 [facility] Systolic (mm Hg) 122 12/15/2017 [facility] Diastolic (mm Hg) 50 12/15/2017 [facility] Respitory Rate 18 12/15/2017 [facility] Heart Rate 67 12/15/2017 [facility] Temperature Oral (F) 98 F 12/15/2017 [facility] Systolic (mm Hg) 129 12/15/2017 [facility] Diastolic (mm Hg) 59 12/15/2017 [facility] Heart Rate 69 12/15/2017 [facility] Respitory Rate 18 12/15/2017 [facility] BMI Calculated 30.58 12/15/2017 [facility] Weight 65.227 12/15/2017 [facility] Height 146.05 cm 12/15/2017 [facility] Respitory Rate 20 12/15/2017 [facility] Temperature Oral (F) 97.3 F 12/15/2017 [facility] Systolic (mm Hg) 189 12/15/2017 [facility] Diastolic (mm Hg) 70 12/15/2017 [facility] Heart Rate 79 12/15/2017 [facility] Weight 62.909 02/16/2017 [facility] Systolic (mm Hg) 156 02/16/2017 [facility] Diastolic (mm Hg) 70 02/16/2017 [facility] Respitory Rate 18 02/16/2017 [facility] Heart Rate 88 02/16/2017 [facility] Temperature Oral (F) 97.6 F 02/16/2017 [facility] BMI Calculated 39 02/16/2017 [facility] Height 127 cm 02/16/2017 [facility] Temperature Oral (F) 97.9 F 06/21/2015 [facility] Respitory Rate 18 06/21/2015 [facility] Systolic (mm Hg) 136 06/21/2015 [facility] Diastolic (mm Hg) 64 06/21/2015 [facility] Heart Rate 67 06/21/2015 [facility] Systolic (mm Hg) 138 06/21/2015 [facility] Diastolic (mm Hg) 63 06/21/2015 [facility] Respitory Rate 18 06/21/2015 [facility] Heart Rate 66 06/21/2015 [facility] Heart Rate 70 06/21/2015 [facility] Respitory Rate 20 06/21/2015 [facility] Systolic (mm Hg) 140 06/21/2015 [facility] Diastolic (mm Hg) 65 06/21/2015 [facility] BMI Calculated 24.85 06/21/2015 [facility] Weight 63.636 06/21/2015 [facility] Height 160.02 cm 06/21/2015 [facility] Temperature Oral (F) 98.0 F 06/21/2015 [facility] Encounters Location Location Details Encounter Type Encounter Number Reason For Visit Attending Provider ADM Date DC Date Status Source [facility] [place] [facility] Services [id number] 01 Jimi Hernadezshabbir 06/18/2014 06/19/2014 [facility] [place] [facility] [place] Out[facility] Di[facility] Services [id number] 02 Nilepathilda Miller 07/07/2014 07/08/2014 [facility] [place] [facility] [id number] Radha Brian 06/21/2015 06/21/2015 [facility]patient [facility] [place] Out[facility] Diag Services [id number] 03 Jimi Wilsonjhon 12/29/2016 12/30/2016 [facility] Emergency [id number] Gerardo Fisheryariel 02/16/2017 02/16/2017 [facility] Emergency [id number] Solange Wilcox 12/15/2017 12/15/2017 [facility] Inpatient [id number] Wallace Diane 03/26/2018 03/30/2018 [facility] Outpatient [id number] James Vera 04/12/2018 04/12/2018 [facility] Observation [id number] Jayson Tobias 07/27/2018 07/28/2018 [facility] Emergency [id number] Gurjit Tello 01/19/2019 01/19/2019 [facility] Observation [id number] Gurjit Tello 01/19/2019 01/20/2019 [facility] [id number] Jeannine Sepulveda 04/28/2019 04/29/2019 [facility] Procedures Procedure Code Date Perfomer Comments Source Appendectomy [id number] [facility] Cataract surgery [id number] [facility], [facility] [place] Ear operations [id number] [facility], [facility] [place] Shoulder joint operations [id number] [facility] [place] Spinal operation [id number] [facility] Assessment and Plan Assessment and Plan Date Source Extracted from:Title: ENT Progress Note Author: Tobias Beltran MD Date: 01/20/19 Ms. Ochoa is a 78 yF with history of HTN, gastritis, depression, angioedema who presented with a 1 day history of throat discomfort concerning for a repeat episode of angioedema. - on FFL 01/19: bilateral arytenoid edema - recommend scheduled 8 mg IV dexamethasone q8 hrs - treatment of angioedema with H1/H2 drew - diet as tolerated - patient can follow up with ENT as needed. - recommend continued avoidance of MARY inhibitor. 1.Angioedema(T78.3XXA) 2.Hypertension(I10) 3.Anxiety and depression(F41.9) 4.Osteoarthritis(M19.90) 5.Chronic constipation(K59.09) 6.Chronic GERD(K21.9) Tobias Beltran MD PGY-1 [facility] MSO# [id number] Please page ENT with any questions: [phone] Extracted from:Title: History and Physical Author: Kenyatta Petersen MD Date: 01/19/19 1.Angioedema(T78.3XXA) Follow-up ENT recommendations. Status post 10 mg IV dexamethasone in the ED, 20 mg IV famotidine, 25 mg IV Benadryl Monitor for airway in the medical IMU Underlying etiology unclear. Most possible risk factor-chronic GERD. Increase Dexilant dosefrequency from 30 mg daily totwice daily. No clinical evidence suggestive of hereditary angioedema or infectious etiology. Not associated with urticaria. Protecting airway. No triggeringallergy/exposure identified, no recent insect bite, sting etc. 2.Hypertension(I10) Continue with doxazosin 4 mg daily, amlodipine 10mg daily. 3.Anxiety and depression(F41.9) No suicidal or homicidal ideation. Continue with buspirone 7.5 mg 3 times daily, Ineztng21 mg daily. 4.Osteoarthritis(M19.90) Patient reports difficulty with ambulation and recently started using a cane (1 day ago). PT consult requested. On meloxicamand tramadol as needed for pain. 5.Chronic constipation(K59.09) Continue with home dose of [id number] mcg daily. Encouraged high-fiber diet. 6.Chronic GERD(K21.9) On Dexilant 30 mg daily at home. Increase to 30 mg twice daily. encourage ambulation Discharge to home in AM if symptomatic improvement and remains hemodynamically stable. Observe in IMU overnight due to concern for supraglottic airway attenuation. Extracted from:Title: Consult Note Author: Kelsie Carrillo MD Date: 01/19/19 Ms. Ochoa is a 78 yF with history of HTN, gastritis, depression, angioedema who presented with a 1 day history of throat discomfort concerning for a repeat episode of angioedema. - on FFL: bilateral arytenoid edema - recommend admission to Hospitalist to IMU - recommend scheduled 8 mg IV dexamethas one q8 hrs - treatment of angioedema with H1/H2 blo cker - diet as tolerated - will continue to follow and will discu ss with staff Mariah Marley Otolaryngology PGY-3 MSO# [id number] Please page with any questions: [phone] 1.Angioedema(T78.3XXA) 2.Hypertension(I10) 4.Osteoarthritis(M19.90) 5.Chronic constipation(K59.09) 6.Chronic GERD(K21.9) TEACHING PHYSICIAN ATTESTATION I performed a history and physical examination of the patient and discussed the patients findings with the resident. I reviewed the residents note and agree with the documented findings and treatment plan. I have reviewed the medical records and relevant diagnostic imaging and the documented procedure (I was not present). Kelsie Carrillo MD [facility] #[id number] Initial Visit Subsequent Visit History Problem-Focused/History Expanded Problem-Focused/History Detailed/History Comprehensive Exam Problem Focused/Exam Expanded Problem-Focused/Exam Detailed MDM Straightforward/MDM Low-Complexity/MDM Moderate-Complexity/MDM High-Complexity 01/20/[address] 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) Ordered: Admit/Condition, 07/27/18 0:56:00 [facility] C[facility]ASC[facility], Status: Out Patient with Observation Services, Telemetry Capable Location, Expected LOS: 1 Midnight, Jayson Collado MD, Admit MD Review/Approve Yes, Isolation: No Isolation/Standard Precautions, Vertebrobasilar TIAs | Vertigo Vertigo(R42) Ordered: Admit/Condition, 07/26/18 20:58:00 [facility], Status: Out Patient with Observation Services, Telemetry Capable Location, Expected LOS: 1 Midnight, Jayson Collado MD, Admit Review/Approve Yes, Isolation: No Isolation/Standard Precautions, Vertigo Admit/Condition, 07/27/18 0:56:00 [facility], Status: Out Patient with Observation Services, Telemetry Capable Location, Expected LOS: 1 Midnight, Jayson Collado MD, Admit Review/Approve Yes, Isolation: No Isolation/Standard Precautions, Vertebrobasilar TIAs | Vertigo Plan Admit the patient's to CDU, will use as needed meclizine I suspect patients may have peripheral vertigo We will do a complete stroke workup to rule out central vertigo with MRA MRI carotid Doppler study Andcheck lipid profile and hemoglobin A1c for risk stratification of her riskstratification Continue full dose aspirin Lovenoxfor DVT prophylaxis Code admit the patient for workup and treatment of possibleTIAversus peripheral vertigo 07/28/2018 [facility] Extracted [facility] Author: Mary Hernández NP Date: 03/28/18 Hosp Day # : 4 ICU Day # : 4 Vent Day # : 24 Hr Events: 03/26 -Tongue remains swollen 03/27 -Extubate Today's Plan: transfer to the floor HPI: 78yo with a history of HTN, anxiety, and GERD presented to ED with acute tongue swelling. No precipitating factor reported. She received steroids and antihistamines. Her condition did not improve. Further history not obtained due to patient clinical condition. She was intubated and sent to ICU for further management. 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 Patient seen and examined. case discussed with Dr. Anthony, ICU charge accounts audit clerk RN Bundles: CVC: DOI: N Location: Indication: Qureshi: DOI: Indication: immobility Vent: DOI: Last Family Update: Who: daughter When:03/27 Advanced Care Planning: Code status: FC Surrogate: Discharge Plan: Where: Home When: 2-3 days Anticipated post D/C barriers: ICU Daily Summary: Review of Systems Constitutional: Negative. Eye: Negative. Ear/Nose/Mouth/Throat: Negative except as documented in history of present illness. Respiratory: Negative except as documented in history of present illness. Cardiovascular: Negative except as documented in history of present illness. Gastrointestinal: Negative. Genitourinary: Negative. Immunologic: Negative. Musculoskeletal: Negative. Psychiatric: Negative. All other systems. Physical Examination VS/Measurements Measurements from flowsheet : Measurements 03/25/2018 19:59 Heparin Dosing Weight (kg) 48.98 03/25/2018 19:56 Height 144.78 cm Height Collection Method Measured Weight 64.545 kg Dosing Weight Difference Percent -1.046 % Dosing Weight Collection Method Measured Body Surface Area 1.6111 m2 Body Mass Index 30.79 m2 , Vital Signs (last 24 hrs) Last Charted Temp Oral L 95.8DegF (MAR 28 06:00) Heart Rate Apical 63 bpm (MAR 28 06:30) Resp Rate 16 BRMIN (MAR 28 06:30) SBP 127 mmHg (MAR 28 06:30) DBP L 58mmHg (MAR 28 06:30) SpO2 98 % (MAR 28 06:30) Height 147.32 cm (MAR 27 09:33) Intake and Output I/O Intake Output Balance 03/27/2018 7a-3p 1226.29 300.00 926.29 3p-11p 947.75 0.00 947.75 11p-7a 800.75 600.00 200.75 Totals 2974.79 900.00 2074.79 03/26/2018 7a-3p 290.96 50.00 240.96 3p-11p 691.96 150.00 541.96 11p-7a 1143.79 80.00 1063.79 Totals 2126.71 280.00 1846.71 General: Alert and oriented. Eye: Pupils are equal, round and reactive to light. HENT: Normocephalic, Tongue swelling resolved. Respiratory: Lungs are clear to auscultation. Cardiovascular: Normal rate, Regular rhythm, No edema. Gastrointestinal: Soft, Non-distended. Musculoskeletal Normal range of motion. No deformity. Integumentary: Warm. Neurologic: Alert, Oriented. Cognition and Speech: Oriented, Speech clear and coherent. Psychiatric: Cooperative. Review / Management 2D echo : Results review: Labs (Last four charted values) WBC H 13.0 (MAR 28) 5.2 (MAR 25) Hgb 12.8 (MAR 28) 13.8 (MAR 25) Hct 39.0 (MAR 28) 41.1 (MAR 25) Plt 182 (MAR 28) 198 (MAR 25) Na 139 (MAR 28) 138 (MAR 27) 137 (MAR 25) 137 (MAR 25) K H 5.5 (MAR 28) H 5.6 (MAR 28) 4.2 (MAR 27) 4.0 (MAR 25) CO2 L 21 (MAR 28) L 21 (MAR 27) L 23 (MAR 25) L 22 (MAR 25) Cl H 111 (MAR 28) 107 (MAR 27) 104 (MAR 25) 105 (MAR 25) Cr 0.78 (MAR 28) H 1.44 (MAR 27) 0.75 (MAR 25) 0.70 (MAR 25) BUN H 43 (MAR 28) H 49 (MAR 27) 22 (MAR 25) 22 (MAR 25) Glucose Random H 104 (MAR 28) H 167 (MAR 27) H 143 (MAR 25) H 131 (MAR 25) Mg 2.4 (MAR 27) Phos 3.7 (MAR 27) Ca L 8.1 (MAR 28) L 8.4 (MAR 27) 9.1 (MAR 25) 8.7 (MAR 25) . 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 Canceled/Inactive Reactions (All) Severity Not Documented NKDA- No reactions were documented., Allergies (1) Active Reaction lisinopril Angioedema Current medications: (Selected) Inpatient Medications Ordered Dextrose 50% Syringe: 12.5 gm, 25 mL, IVP, PRN, PRN: Blood Glucose Results Dextrose 50% Syringe: 25 gm, 50 mL, IVP, PRN, PRN: Blood Glucose Results Kayexalate: 15 gm, PO, ONCE Lasix: 20 mg, IVP, ONCE Lovenox: 30 mg, 0.3 mL, SUB-Q, [id number] NS 1,000 mL: 100 ml/hr, IV, Stop: 04/26/18 9:30:00 CDT diphenhydrAMINE 25 mg oral tablet, disintegratin mg, 2 tab, PO, Q6H, PRN: Itching famotidine: 20 mg, 1 tab, OGT, Daily glucagon: 1 mg, IM, PRN, PRN: Blood Glucose Results insulin lispro: 1 unit, 0.01 mL, SUB-Q, Sliding Scale, PRN: Blood Glucose Results insulin lispro: 2 unit, 0.02 mL, SUB-Q, Sliding Scale, PRN: Blood Glucose Results insulin lispro: 3 unit, 0.03 mL, SUB-Q, Sliding Scale, PRN: Blood Glucose Results insulin lispro: 4 unit, 0.04 mL, SUB-Q, Sliding Scale, PRN: Blood Glucose Results insulin lispro: 5 unit, 0.05 mL, SUB-Q, Sliding Scale, PRN: Blood Glucose Results methylPREDNISolone SODium SUCCinate: 30 mg, 0.75 mL, IVP, Q8H-06 metoclopramide: 5 mg, 5 mL, OGT, QID-Before Meals pneumococcal 13-valent vaccine: 0.5 mL, IM, ONCALL Prescriptions Suspended Flonase 0.05 mg/inh nasal spray: 2 spray, NASAL, BID, 16 gm, 0 Refill(s) Documented Medications Suspended Nexium 40 mg oral delayed release capsule: 1 cap, PO, Daily, 30 cap Vernon 5/325 oral tablet: 0 Refill(s) Pristiq 50 mg oral tablet, extended release: 1 tab, PO, Daily, 30 tab benazepril: 12.5 mg, PO, Daily desvenlafaxine 50 mg oral tablet, extended release: 50 mg, 1 tab, PO, Daily, 30 tab, 0 Refill(s) gabapentin: 0 Refill(s) latanoprost ophthalmic 0.005% solution: 1 drp, Each Affected Eye, Bedtime, 2.5 mL, 0 Refill(s) lisinopril: 20 mg, PO, Daily, 0 Refill(s) metoclopramide 10 mg oral tablet: 10 mg, PO, QID-Before Meals, 40 tab pantoprazole 40 mg oral enteric coated tablet: 40 mg, 1 tab, PO, Daily, 30 tab, 0 Refill(s) tramadol 50 mg oral tablet: 50 mg, 1 tab, PO, Q4H, 0 Refill(s), Medications (17) Active Scheduled: (7) enoxaparin 30 mg/0.3 ml INJ 30 mg 0.3 mL, SUB-Q, [id number] famotidine 20 mg tab 20 mg 1 tab, OGT, Daily furosemide 20 mg, IVP, ONCE methylPREDNISolone SOD SUCC 40mg INJ 30 mg 0.75 mL, IVP, Q8H-06 metoclopramide 10 mg/10 ml UD SOLN 5 mg 5 mL, OGT, QID-Before Meals pneumococcal 13-valent conjugate vaccine SUSP 0.5 mL, IM, ONCALL sodium polystyrene sulfonate 15 gm, PO, ONCE Continuous: (1) sodium chloride 0.9% 1000 ml INJ 1,000 mL 1,000 mL, IV, 100 ml/hr PRN: (9) Dextrose 50% 50 ml INJ syringe 12.5 gm 25 mL, IVP, PRN Dextrose 50% 50 ml INJ syringe 25 gm 50 mL, IVP, PRN diphenhydrAMINE 25 mg Tab 50 mg 2 tab, PO, Q6H glucagon recombinant 1 mg PDR 1 mg, IM, PRN insulin lispro 100 unit/ml 3 ml Vial 1 unit 0.01 mL, SUB-Q, Sliding Scale insulin lispro 100 unit/ml 3 ml Vial 2 unit 0.02 mL, SUB-Q, Sliding Scale insulin lispro 100 unit/ml 3 ml Vial 3 unit 0.03 mL, SUB-Q, Sliding Scale insulin lispro 100 unit/ml 3 ml Vial 4 unit 0.04 mL, SUB-Q, Sliding Scale insulin lispro 100 unit/ml 3 ml Vial 5 unit 0.05 mL, SUB-Q, Sliding Scale Problem list: All Problems Resolved: Anxiety / SNOMED CT 77880832 Resolved: Arthritis / SNOMED CT 1139633 Resolved: Depression / SNOMED CT 131729057 Resolved: GERD (gastroesophageal reflux disease) / SNOMED CT [id number] Resolved: Hypertension / SNOMED CT [id number] Resolved: Shingles / SNOMED CT [id number], No qualifying data available Histories Past Medical History: Resolved GERD (gastroesophageal reflux disease) ([id number]): Resolved. Hypertension ([id number]): Resolved. Shingles ([id number]): Resolved. Anxiety (49127112): Resolved. Depression (509227468): Resolved. Arthritis (0821003): Resolved. Family History: Entire family history is negative. Procedure history: Cataract surgery (SNOMED CT 293759854). Shoulder joint operations (SNOMED CT 289790961). Ear operations (SNOMED CT 9370709370). Spinal operation (SNOMED CT 9253242897). Appendectomy (SNOMED CT 762289659). Social History Social and Psychosocial Habits Tobacco 06/20/2015 Use: Never smoker Exposure to Tobacco Smoke None Cigarette Smoking Last 365 Days No Reg Smoking Cessation Counseling No 12/14/2017 Use: Never smoker Exposure to Tobacco Smoke None Cigarette Smoking Last 365 Days No Reg Smoking Cessation Counseling No 03/25/2018 Use: Never smoker Exposure to Tobacco Smoke None Cigarette Smoking Last 365 Days No Reg Smoking Cessation Counseling No . Addendum by Dafne Anthony MD on 03/28/2018 09:02 I have seen and examined this patient with Mary Hernández and I agree with her assessment and plan. 03/30/2018 [facility] Plan of Care No Data Provided for This Section Social History Social History Date Source Social History TypeResponse Smoking Status Never smoker; Exposure to Tobacco Smoke None; Cigarette Smoking Last 365 Days No; Reg Smoking Cessation Counseling No entered on: 04/28/19 04/28/2019 [facility] Social History TypeResponse Smoking Status Never smoker; Exposure to Tobacco Smoke None; Cigarette Smoking Last 365 Days No; Reg Smoking Cessation Counseling No entered on: 01/19/19 01/19/[address] [facility] Social History TypeResponse Smoking Status Never smoker; Exposure to Tobacco Smoke None; Cigarette Smoking Last 365 Days No; Reg Smoking Cessation Counseling No entered on: 07/26/18 07/27/2018 [facility] Social History TypeResponse Smoking Status Never smoker; Exposure to Tobacco Smoke None; Cigarette Smoking Last 365 Days No; Reg Smoking Cessation Counseling No 06/21/2015 [facility] Family History No Data Provided for This Section Advance Directives No Data Provided for This Section Functional Status No Data Provided for This Section
== END 2020-06-09 11:30 | disposition home health service (06) ==
LOC: OR 09:13 → PACU V 12:48 → MED/SURG 14:56
PROVIDERS: ADMIT Specialist; ATTEND Specialist
DX: M17.0 Bilateral primary osteoarthritis of knee (principal); Z11.59 Encounter for screening for other viral diseases; F41.9 Anxiety disorder, unspecified; I10 Essential (primary) hypertension; K29.70 Gastritis, unspecified, without bleeding
CPT/HCPCS: 27447; 36415 ×2; 71046; 73560; 85014; 85018; 85025; 86850; 86900; 86920; 93005; 97116 ×2; 97161; 97530; C1713; G0378 ×2; J0171; J0690 ×2; J1100; J1885; J2001 ×2; J2250; J2405; J2704; J2795; J3010; J3370; J7030; J7040; S0164; U0002